=== PATIENT | male | born 1995 | race African-American/Black ===

== ENCOUNTER 2020-05-17 11:52 | Inpatient (IN) | payer OTHER ==
--- NOTE | 2020-05-17 13:00 | BHS.RME ---
Substance Use & Tx History - Substance Use History Alcohol Substance amount: 2 bottles of liqour Frequency of use: Daily Substance route: Oral Date of Last Use: 05/14/20 - Last Treatment Date of last treatment: Never in detox Where was last treatment: ER ([facility]) Physical/Psych/Mental Status - Behavior General Behavior: Decreased activity Eye Contact: Normal Other Behaviors: Mannerisms - Cooperativeness Cooperativeness: Cooperative - Thinking Thought Processes: Logical Thought content: Future oriented - Physical Health Problems Is patient presently having any pain?: Yes (Epigastric area) Does patient presently have any injuries (include location): No Does patient currently have a fever: Yes (low grade 99* F) CIWA Nausea/Vomitin-Mild Nausea/No Vomiting Muscle Tremors: None Anxiety: 0-No Anxiety, at Ease Agitation: 0-Normal Activity Paroxysmal Sweats: No Perspiration Orientation: 0-Oriented Tacttile Disturbances: 0-None Auditory Disturbances: 0-None Visual Disturbances: 0-None Headache: 1-Very Mild CIWA-Ar Total Score: 2 Treatment Recommendation - Level of Care Level of Care: Acute Medical
--- NOTE | 2020-05-17 13:22 | HP ---
CIWA Score Nausea/Vomitin-Mild Nausea/No Vomiting Muscle Tremors: None Anxiety: 1-Mildly Anxious Agitation: 1-Slight > Activity Paroxysmal Sweats: 1-Minimal Palms Moist Orientation: 0-Oriented Tacttile Disturbances: 1-Very Mild Itch/Numbness Auditory Disturbances: 1-Very Mild Visual Disturbances: 1-Very Mild Sensitivity Headache: 2-Mild CIWA-Ar Total Score: 9 - Admission Criteria OASAS Guidelines: Admission for Medically Managed Detox: Requires at least one of the followin. CIWA greater than 12 2. Seizures within the past 24 hours 3. Delirium tremens within the past 24 hours 4. Hallucinations within the past 24 hours 5. Acute intervention needed for co occurring medical disorder 6. Acute intervention needed for co occurring psychiatric disorder 7. Severe withdrawal that cannot be handled at a lower level of care (continued vomiting, continued diarrhea, abnormal vital signs) requiring intravenous medication and/or fluids 8. Patient presents the following: Acute intervention needed for co-occurring med or psych disorder Admission Criteria Met: Admission criteria met Admission ROS S - HPI Chief Complaint: I need detox Allergies/Adverse Reactions: Allergies Allergy/AdvReac Type Severity Reaction Status Date / Time No Known Allergies Allergy Verified 05/17/20 13:27 History of Present Illness: Patient is a 24 year old man who presents for alcohol detox, this is his first attempt at detox. Patient reports he had alcohol on and has not drank since then but he continues to have withdrawal symptoms. He reports being taken to [facility] following 's binge drinking. Upon arrival at [facility], he is noted with elevated blood pressure Exam Limitations: No Limitations - Ebola screening Have you traveled outside of the country in the last 21 days: No Have you had contact with anyone from an Ebola affected area: No Have you been sick,other than usual withdrawal symptoms: No Do you have a fever: No - Review of Systems Constitutional: Chills, Loss of Appetite EENT: reports: No Symptoms Reported Respiratory: reports: No Symptoms reported Cardiac: reports: No Symptoms Reported GI: reports: Nausea, Poor Appetite, Abdominal cramping : reports: No Symptoms Reported Musculoskeletal: reports: Muscle Weakness Integumentary: reports: No Symptoms Reported Neuro: reports: Headache Endocrine: reports: No Symptoms Reported Hematology: reports: No Symptoms Reported Psychiatric: reports: No Sypmtoms Reported Other Systems: Reviewed and Negative Patient History - Patient Medical History Hx Anemia: No Hx Asthma: No Hx Chronic Obstructive Pulmonary Disease (COPD): No Hx Cancer: No Hx Cardiac Disorders: No Hx Congestive Heart Failure: No Hx Hypertension: No Hx Hypercholesterolemia: No Hx Pacemaker: No HX Cerebrovascular Accident: No Hx Seizures: No Hx Dementia: No Hx Diabetes: No Hx Gastrointestinal Disorders: No Hx Liver Disease: No Hx Genitourinary Disorders: No Hx Sexually Transmitted Disorders: No Hx Renal Disease (ESRD): No Hx Thyroid Disease: No Hx Human Immunodeficiency Virus (HIV): No Hx Hepatitis C: No Hx Depression: No Hx Suicide Attempt: No Hx Bipolar Disorder: No Hx Schizophrenia: No - Patient Surgical History Past Surgical History: No - PPD History Previous Implant?: No Documented Results: Negative w/o proof Implanted On Prior R Admission?: No PPD to be Administered?: Yes - Smoking Cessation Smoking history: Never smoked Have you smoked in the past 12 months: No Hx Chewing Tobacco Use: No Initiated information on smoking cessation: No - Substances abused Alcohol Other (specify): Liqour Substance route: Oral Frequency: Daily Amount used: 2 LITERS/DAY Age of first use: 18 Date of last use: 05/14/20 Admission Physical Exam [facility] - Physical General Appearance: Yes: No Apparent Distress HEENTM: Yes: Normocephalic, Normal Voice Respiratory: Yes: Chest Non-Tender, Lungs Clear, Normal Breath Sounds, No Respiratory Distress, No Accessory Muscle Use Neck: Yes: No masses,lesions,Nodules, Supple Breast: Yes: Breast Exam Deferred Cardiology: Yes: Regular Rhythm, Regular Rate, S1, S2 Abdominal: Yes: Increased Bowel Sounds, Other (mild epigastric tenderness) Genitourinary: Yes: Within Normal Limits Back: Yes: Normal Inspection Musculoskeletal: Yes: full range of Motion, Gait Steady, Pelvis Stable Neurological: Yes: Fully Oriented, Normal Mood/Affect, Normal Response Integumentary: Yes: Normal Color Lymphatic: Yes: Within Normal Limits - Diagnostic (1) Alcohol dependence with withdrawal Current Visit: Yes Status: Acute Qualifiers: Complication of substance-induced condition: uncomplicated Qualified Code(s): F10.230 - Alcohol dependence with withdrawal, uncomplicated Cleared for Admission [facility] - Detox or Rehab [facility] Level of Care: Medically Managed Detox Regimen/Protocol: Librium Claeared for Rehab Admission: No Breathalyzer - Breathalyzer Breathalyzer: 0 Urine Drug Screen - Test Device Lot number: [id number] Expiration date: 07/20/21 - Control Is test valid?: Yes - Results Drug screen NEGATIVE: Yes Inpatient Rehab Admission - Rehab Decision to Admit Inpatient rehab admission?: No
[2020-05-17] MEDS ORDERED: METHOCARBAMOL 500 MG TABLET PO PRN (13:28)
[2020-05-17] MEDS ORDERED: IBUPROFEN 400 MG TABLET (FP) PO PRN (13:28)
[2020-05-17] MEDS ORDERED: BISMUTH SUBSALICYLATE 524 MG/30 ML UD PO PRN (13:28)
[2020-05-17] MEDS ORDERED: ONDANSETRON *ODT* 4 MG TABLET SL ONE (13:28)
[2020-05-17] MEDS ORDERED: MAGNESIUM HYDROX 2400MG/30ML ORAL SUSPENSION 30 ML CUP PO PRN (13:28)
[2020-05-17] MEDS ORDERED: MENTHOL/PHENOL 1 EACH UD MM PRN (13:28)
[2020-05-17] MEDS ORDERED: MAGNESIUM CITRATE 300 ML BOTTLE PO PRN (13:28)
[2020-05-17] MEDS ORDERED: ACETAMINOPHEN 325 MG TABLET (FP) PO PRN ×2 (13:28)
[2020-05-17 13:51] VITALS: BMI 22.8
[2020-05-17] MEDS ORDERED: cloNIDine HCL 0.1 MG TABLET PO ONE (13:55)
[2020-05-17] MEDS: hydrOXYzine PAMOATE 25 MG CAPSULE (FP) PO SCH ×3 (14:41→22:14)
[2020-05-17] MEDS: chlordiazePOXIDE HCL 10 MG CAPSULE PO PRN (14:42)
[2020-05-17] MEDS: chlordiazePOXIDE HCL 25 MG CAPSULE PO SCH (22:13)
[2020-05-17] MEDS: MELATONIN 5 MG TABLETS PO SCH (22:14)
[2020-05-17] MEDS: THIAMINE HCL 100 MG TABLET (FP) PO SCH (22:14)
[2020-05-17] MEDS: MAG HYDROX/AL HYDROX/SIMETH 30 ML UNIT-DOSE CUP PO PRN (22:15)
[2020-05-18] MEDS: hydrOXYzine PAMOATE 25 MG CAPSULE (FP) PO SCH (05:30)
[2020-05-18] MEDS: chlordiazePOXIDE HCL 25 MG CAPSULE PO SCH ×3 (05:30→22:22)
[2020-05-18] MEDS ORDERED: hydrOXYzine PAMOATE 25 MG CAPSULE (FP) PO PRN (09:46)
[2020-05-18] MEDS: chlordiazePOXIDE HCL 10 MG CAPSULE PO PRN (10:28)
[2020-05-18] MEDS: PRENATAL VITAMINS W/ FOLIC ACID TABLET (FP) PO SCH (10:28)
[2020-05-18] MEDS: cloNIDine HCL 0.1 MG TABLET PO PRN ×2 (10:28→22:22)
[2020-05-18] MEDS: MAG HYDROX/AL HYDROX/SIMETH 30 ML UNIT-DOSE CUP PO PRN (10:31)
--- NOTE | 2020-05-18 10:43 | PN ---
S CIWA - CIWA Score Nausea/Vomitin-No Nausea/No Vomiting Muscle Tremors: 3 Anxiety: 2 Agitation: 3 Paroxysmal Sweats: 3 Orientation: 0-Oriented Tacttile Disturbances: 0-None Auditory Disturbances: 0-None Visual Disturbances: 0-None Headache: 0-None Present CIWA-Ar Total Score: 11 S Progress Note (SOAP) Subjective: sweats shakes body aches agitation restless Objective: 05/18/20 10:41 Vital Signs Temperature 98.9 F 05/18/20 08:43 Pulse Rate 77 05/18/20 08:43 Respiratory Rate 18 05/18/20 08:43 Blood Pressure 160/90 05/18/20 08:43 O2 Sat by Pulse Oximetry (%) 98 05/18/20 06:12 labs pending aaox3 ambulating no acute distress Assessment: 05/18/20 10:42 withdrawals Plan: continue detox increase fluids monitor BP status pending labs
[2020-05-18 11:32] LABS: HEMATOCRIT 41.2 % (35.4-49); HEMOGLOBIN 13.9 GM/dL (11.7-16.9); MCH 33.6 pg (25.7-33.7); MCHC 33.9 g/dl (32.0-35.9); MEAN CELL VOLUME 99.2 fl (80-96); MEAN PLT VOLUME 10.2 fl (7.5-11.1); PLATELET COUNT 148 K/MM3 (134-434); RBC 4.15 M/mm3 (4.00-5.60); RDW 16.2 % (11.9-15.9)
[2020-05-18 11:45] LABS: ALBUMIN 3.5 g/dl (3.4-5.0); BILIRUBIN,TOTAL 1.1 mg/dL (0.2-1); BLOOD UREA NITROGEN 11.4 mg/dL (7-18); CALCIUM 9.2 mg/dL (8.5-10.1); CREATININE 0.9 mg/dL (0.55-1.3); POTASSIUM 3.7 mmol/L (3.5-5.1); TOT PROT 7.2 g/dl (6.4-8.2)
[2020-05-18] MEDS: MELATONIN 5 MG TABLETS PO SCH (22:23)
[2020-05-18] MEDS: THIAMINE HCL 100 MG TABLET (FP) PO SCH (22:23)
[2020-05-19] MEDS: chlordiazePOXIDE 5 MG CAPSULE PO SCH ×3 (05:22→21:52)
[2020-05-19] MEDS: PRENATAL VITAMINS W/ FOLIC ACID TABLET (FP) PO SCH (10:14)
--- NOTE | 2020-05-19 10:55 | PN ---
S CIWA - CIWA Score Nausea/Vomitin-No Nausea/No Vomiting Muscle Tremors: 2 Anxiety: 1-Mildly Anxious Agitation: 2 Paroxysmal Sweats: 2 Orientation: 0-Oriented Tacttile Disturbances: 0-None Auditory Disturbances: 0-None Visual Disturbances: 0-None Headache: 0-None Present CIWA-Ar Total Score: 7 S Progress Note (SOAP) Subjective: sweats shakes interrupted sleep Objective: 05/19/20 10:54 Vital Signs Temperature 97.5 F L 05/19/20 08:40 Pulse Rate 66 05/19/20 08:40 Respiratory Rate 16 05/19/20 08:40 Blood Pressure 142/89 05/19/20 08:40 O2 Sat by Pulse Oximetry (%) 96 05/19/20 05:49 Laboratory Tests 05/18/20 05/18/20 05/18/20 08:15 08:15 08:15 WBC 4.0 RBC 4.15 Hgb 13.9 Hct 41.2 MCV 99.2 H MCH 33.6 MCHC 33.9 RDW 16.2 H Plt Count 148 MPV 10.2 Sodium 139 Potassium 3.7 Chloride 102 Carbon Dioxide 29 Anion Gap 8 BUN 11.4 Creatinine 0.9 Est GFR (CKD-EPI)AfAm 139.04 Est GFR (CKD-EPI)NonAf 119.96 Random Glucose 123 H Calcium 9.2 Total Bilirubin 1.1 H AST 202 H ALT 71 H Alkaline Phosphatase 70 Total Protein 7.2 Albumin 3.5 Syphilis Serology Non-reactive labs noted elevated ast and alt encourage fluid intake aaox3 ambulating no acute distress Assessment: 05/19/20 10:54 withdrawals Plan: continue detox increase fluids labs repeated
[2020-05-19] MEDS: cloNIDine HCL 0.1 MG TABLET PO PRN ×2 (17:36→21:54)
[2020-05-19] MEDS: MELATONIN 5 MG TABLETS PO SCH (21:53)
[2020-05-19] MEDS: THIAMINE HCL 100 MG TABLET (FP) PO SCH (21:53)
[2020-05-20] MEDS ORDERED: chlordiazePOXIDE HCL 10 MG CAPSULE PO PRN
[2020-05-20] MEDS: chlordiazePOXIDE HCL 10 MG CAPSULE PO SCH ×3 (05:34→22:02)
[2020-05-20] MEDS: PRENATAL VITAMINS W/ FOLIC ACID TABLET (FP) PO SCH (10:05)
--- NOTE | 2020-05-20 10:29 | PN ---
S CIWA - CIWA Score Nausea/Vomitin-No Nausea/No Vomiting Muscle Tremors: 2 Anxiety: 1-Mildly Anxious Agitation: 1-Slight > Activity Paroxysmal Sweats: No Perspiration Orientation: 0-Oriented Tacttile Disturbances: 0-None Auditory Disturbances: 0-None Visual Disturbances: 0-None Headache: 0-None Present CIWA-Ar Total Score: 4 BHS Progress Note (SOAP) Subjective: restless agitation interrupted sleep Objective: 05/20/20 10:28 Vital Signs Temperature 97.5 F L 05/20/20 08:39 Pulse Rate 79 05/20/20 08:39 Respiratory Rate 16 05/20/20 08:39 Blood Pressure 130/76 05/20/20 08:39 O2 Sat by Pulse Oximetry (%) 96 05/20/20 05:53 Laboratory Tests 05/17/20 05/18/20 05/18/20 08:27 08:15 08:15 WBC 4.0 RBC 4.15 Hgb 13.9 Hct 41.2 MCV 99.2 H MCH 33.6 MCHC 33.9 RDW 16.2 H Plt Count 148 MPV 10.2 Absolute Neuts (auto) Neutrophils % Lymphocytes % Monocytes % Eosinophils % Basophils % Nucleated RBC % Sodium Potassium Chloride Carbon Dioxide Anion Gap BUN Creatinine Est GFR (CKD-EPI)AfAm Est GFR (CKD-EPI)NonAf Random Glucose Calcium Total Bilirubin AST ALT Alkaline Phosphatase Total Protein Albumin Syphilis Serology Non-reactive COVID-19 ([facility]) Not detected 05/18/20 05/20/20 05/20/20 08:15 07:50 07:50 WBC 5.1 RBC 4.45 Hgb 14.6 Hct 44.1 MCV 99.2 H MCH 32.9 MCHC 33.1 RDW 16.1 H Plt Count 195 D MPV 10.7 Absolute Neuts (auto) 2.1 Neutrophils % 40.1 L Lymphocytes % 45.0 H Monocytes % 10.4 H Eosinophils % 3.5 Basophils % 1.0 Nucleated RBC % 0 Sodium 139 137 Potassium 3.7 3.9 Chloride 102 101 Carbon Dioxide 29 32 Anion Gap 8 4 L BUN 11.4 6.1 L Creatinine 0.9 0.8 Est GFR (CKD-EPI)AfAm 139.04 145.93 Est GFR (CKD-EPI)NonAf 119.96 125.91 Random Glucose 123 H 73 L Calcium 9.2 9.8 Total Bilirubin 1.1 H 0.6 AST 202 H 169 H ALT 71 H 111 H Alkaline Phosphatase 70 69 Total Protein 7.2 8.2 Albumin 3.5 4.0 Syphilis Serology COVID-19 ([facility]) AST and bilirubin improving. aaox3 ambulating no acute distress Assessment: 05/20/20 10:28 withdrawals Plan: continue detox increase fluids d/c in am
[2020-05-20 10:58] LABS: EOS % 3.5 % (0-4.5); HEMATOCRIT 44.1 % (35.4-49); HEMOGLOBIN 14.6 GM/dL (11.7-16.9); MCH 32.9 pg (25.7-33.7); MCHC 33.1 g/dl (32.0-35.9); MEAN CELL VOLUME 99.2 fl (80-96); MEAN PLT VOLUME 10.7 fl (7.5-11.1); MONO % 10.4 % (3.8-10.2); NEUT % 40.1 % (42.8-82.8); PLATELET COUNT 195 K/MM3 (134-434); RBC 4.45 M/mm3 (4.00-5.60); RDW 16.1 % (11.9-15.9); WHITE BLOOD COUNT 5.1 K/mm3 (4.0-10.0)
[2020-05-20 11:00] LABS: BILIRUBIN,TOTAL 0.6 mg/dL (0.2-1); BLOOD UREA NITROGEN 6.1 mg/dL (7-18); CALCIUM 9.8 mg/dL (8.5-10.1); CREATININE 0.8 mg/dL (0.55-1.3); POTASSIUM 3.9 mmol/L (3.5-5.1); TOT PROT 8.2 g/dl (6.4-8.2)
[2020-05-20] MEDS: MELATONIN 5 MG TABLETS PO SCH (22:02)
[2020-05-20] MEDS: THIAMINE HCL 100 MG TABLET (FP) PO SCH (22:02)
[2020-05-21] MEDS ORDERED: chlordiazePOXIDE HCL 10 MG CAPSULE PO ONE (05:00)
--- NOTE | 2020-05-21 08:49 | DS ---
[facility] Detox Discharge Summary Admission Date: 05/17/20 Discharge Date: 05/21/20 - History Present History: Alcohol Dependence - Physical Exam Results Vital Signs: Vital Signs Temperature 96.9 F L 05/21/20 06:00 Pulse Rate 64 05/21/20 06:00 Respiratory Rate 18 05/21/20 06:00 Blood Pressure 119/75 05/21/20 06:00 O2 Sat by Pulse Oximetry (%) 97 05/21/20 06:00 Pertinent Admission Physical Exam Findings: Vital Signs Temperature 96.9 F L 05/21/20 06:00 Pulse Rate 64 05/21/20 06:00 Respiratory Rate 18 05/21/20 06:00 Blood Pressure 119/75 05/21/20 06:00 O2 Sat by Pulse Oximetry (%) 97 05/21/20 06:00 Laboratory Tests 05/17/20 05/18/20 05/18/20 08:27 08:15 08:15 WBC 4.0 RBC 4.15 Hgb 13.9 Hct 41.2 MCV 99.2 H MCH 33.6 MCHC 33.9 RDW 16.2 H Plt Count 148 MPV 10.2 Absolute Neuts (auto) Neutrophils % Lymphocytes % Monocytes % Eosinophils % Basophils % Nucleated RBC % Sodium Potassium Chloride Carbon Dioxide Anion Gap BUN Creatinine Est GFR (CKD-EPI)AfAm Est GFR (CKD-EPI)NonAf Random Glucose Calcium Total Bilirubin AST ALT Alkaline Phosphatase Total Protein Albumin Syphilis Serology Non-reactive COVID-19 ([facility]) Not detected 05/18/20 05/20/20 05/20/20 08:15 07:50 07:50 WBC 5.1 RBC 4.45 Hgb 14.6 Hct 44.1 MCV 99.2 H MCH 32.9 MCHC 33.1 RDW 16.1 H Plt Count 195 D MPV 10.7 Absolute Neuts (auto) 2.1 Neutrophils % 40.1 L Lymphocytes % 45.0 H Monocytes % 10.4 H Eosinophils % 3.5 Basophils % 1.0 Nucleated RBC % 0 Sodium 139 137 Potassium 3.7 3.9 Chloride 102 101 Carbon Dioxide 29 32 Anion Gap 8 4 L BUN 11.4 6.1 L Creatinine 0.9 0.8 Est GFR (CKD-EPI)AfAm 139.04 145.93 Est GFR (CKD-EPI)NonAf 119.96 125.91 Random Glucose 123 H 73 L Calcium 9.2 9.8 Total Bilirubin 1.1 H 0.6 AST 202 H 169 H ALT 71 H 111 H Alkaline Phosphatase 70 69 Total Protein 7.2 8.2 Albumin 3.5 4.0 Syphilis Serology COVID-19 ([facility]) aaox3 ambulating no acute distress lungs CTA - Treatment Hospital Course: Detox Protocol Followed, Detoxed Safely, Responded well, Discharged Condition Good, Rehab Referral Accepted - Medication Discharge Medications: Ambulatory Orders NK [No Known Home Medication] 05/17/20 - Diagnosis (1) Alcohol dependence with withdrawal Current Visit: Yes Status: Chronic Qualifiers: Complication of substance-induced condition: uncomplicated Qualified Code(s): F10.230 - Alcohol dependence with withdrawal, uncomplicated - AMA Did Patient Leave Against Medical Advice: No
[2020-05-21 09:58] VITALS: BP 140/87; PULSE 102; TEMP 97.8
== END 2020-05-21 09:24 | disposition home or self-care (01) | DRG 775 ==
LOC: YASAS 11:52 → Y6N 13:26
PROVIDERS: ADMIT Allergy & Immunology; ATTEND Allergy & Immunology
PROC: HZ2ZZZZ Detoxification Services for Substance Abuse Treatment (ICD-10-PCS; principal; 2020-05-17)
DX: F10.230 Alcohol dependence with withdrawal, uncomplicated (principal); R03.0 Elevated blood-pressure reading, without diagnosis of hypertension; R74.0 Nonspecific elevation of levels of transaminase and lactic acid dehydrogenase [LDH]
CPT/HCPCS: 36415; 80053; 85025; 85027; 86780; J0735; U0003

== ENCOUNTER 2020-08-10 17:07 | Inpatient (IN) | payer OTHER ==
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
[2020-08-10 17:46] VITALS: BMI 28.3
[2020-08-10 17:57] LABS: BASO % 0.5 % (0-2.0); EOS % 0.1 % (0-4.5); HEMATOCRIT 44.9 % (35.4-49); HEMOGLOBIN 15.6 GM/dL (11.7-16.9); LYMPH % 35.1 % (8-40); MCH 34.6 pg (25.7-33.7); MCHC 34.7 g/dl (32.0-35.9); MEAN CELL VOLUME 99.8 fl (80-96); MEAN PLT VOLUME 8.9 fl (7.5-11.1); MONO % 6.4 % (3.8-10.2); NEUT % 57.9 % (42.8-82.8); PLATELET COUNT 306 K/MM3 (134-434); RDW 13.2 % (11.9-15.9); WHITE BLOOD COUNT 7.4 K/mm3 (4.0-10.0)
[2020-08-10 18:06] LABS: INR 1.03 (0.83-1.09); PROTHROMBIN TIME (PATIENT) 12.2 SEC (9.7-13.0)
[2020-08-10 18:42] LABS: BILIRUBIN,TOTAL 0.5 mg/dL (0.2-1); BLOOD UREA NITROGEN 12.8 mg/dL (7-18); CALCIUM 8.5 mg/dL (8.5-10.1); POTASSIUM 4.3 mmol/L (3.5-5.1); TOT PROT 8.6 g/dl (6.4-8.2)
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
--- NOTE | 2020-08-10 19:24 | PDOC ---
*Physical Exam - Vital Signs Last Vital Signs Temp Pulse Resp BP Pulse Ox 97.0 F L 112 H 18 129/72 100 08/10/20 17:30 08/10/20 17:30 08/10/20 17:30 08/10/20 18:51 08/10/20 17:30 - Physical Exam Patient sleeping in bed, not arrousable. General Appearance: Yes: Other (Patient is obtunded in bed, unable to be woken up.) ED Treatment Course - LABORATORY CBC & Chemistry Diagram: 08/10/20 17:22 08/10/20 17:22 - ADDITIONAL ORDERS Additional order review: Laboratory Results 08/10/20 08/10/20 08/10/20 17:22 17:22 17:22 PT with INR 12.20 INR 1.03 Sodium 142 Potassium 4.3 Chloride 109 H Carbon Dioxide 23 Anion Gap 10 BUN 12.8 Creatinine 1.0 Est GFR (CKD-EPI)AfAm 122.41 Est GFR (CKD-EPI)NonAf 105.62 Random Glucose 130 H Calcium 8.5 Total Bilirubin 0.5 AST 103 H ALT 108 H Alkaline Phosphatase 72 Total Protein 8.6 H Albumin 4.0 Salicylates < 1.7 L Acetaminophen < 2.0 Alcohol, Quantitative 484.6 H 08/10/20 17:22 RBC 4.50 MCV 99.8 H MCHC 34.7 RDW 13.2 D MPV 8.9 D Neutrophils % 57.9 D Lymphocytes % 35.1 D Monocytes % 6.4 Eosinophils % 0.1 D Basophils % 0.5 ED Progress Note - Progress Note Progress Note: Patient signed out to me by day team. Sleeping in bed, obtunded. Medical Decision Making - Medical Decision Making 08/10/20 19:22 24 YOM with alcohol intoxication. Patient signed out to me by day team - Vitals: wnl - exam: patient sleeping in bed reassess: unable to wake patient with voice or sternal rub. Will reassess again. 08/11/20 00:27 Reassess: could wake patient however was in and out of awake state, difficulty answering questions, AandO x2. Patient was able to walk but not without assistance. 08/11/20 07:11 Reassess: Patient expresses desire to return home however appears tremulus, tachy to 120s. will admit for alcohol withdrawal Discharge - Discharge Information Problems reviewed: Yes Clinical Impression/Diagnosis: Alcohol dependence with withdrawal Qualifiers: Complication of substance-induced condition: uncomplicated Qualified Code(s): F10.230 - Alcohol dependence with withdrawal, uncomplicated - Follow up/Referral - Patient Discharge Instructions - Post Discharge Activity
--- OUTSIDE RECORDS SUMMARY | 2020-08-10 20:42 | XMS ---
:1995 Author Organization [facility] Care Team Providers Name Role Phone ED STAFF PHYSICIAN, BRIAN Unavailable Unavailable PALLI VINO Emory Unavailable Unavailable Brian Sorensen Unavailable Unavailable [employer] TOOL SALVAGE WORKER, MOBOLAJI Unavailable [employer] TOOL SALVAGE WORKER, MOBOLAJI Unavailable [employer] TOOL SALVAGE WORKER, MOBOLAJI Unavailable [employer] TOOL SALVAGE WORKER, MOBOLAJI Unavailable ED STAFF PHYSICIAN, STAFF Unavailable Unavailable JULISSA WHYTE Unavailable Unavailable CHRISTOPHER MARTINO MD Unavailable ED STAFF PHYSICIANJESSEE Unavailable Unavailable Other, Doctor Unavailable Unavailable ED STAFF PHYSICIAN Unavailable Unavailable Re-disclosure Warning The records that you are about to access may contain information from federally- assisted alcohol or drug abuse programs. If such information is present, then the following federally mandated warning applies: This information has been disclosed to you from records protected by federal confidentiality rules (42 CFR part 2). The federal rules prohibit you from making any further disclosure of this information unless further disclosure is expressly permitted by the written consent of the person to whom it pertains or as otherwise permitted by 42 CFR part 2. A general authorization for the release of medical or other information is NOT sufficient for this purpose. The Federal rules restrict any use of the information to criminally investigate or prosecute any alcohol or drug abuse patient.The records that you are about to access may contain highly sensitive health information, the redisclosure of which is protected by Article 27-F of the [facility] Public Health law. If you continue you may haveaccess to information: Regarding HIV / AIDS; Provided by facilities licensed or operated by the [facility] Office of Mental Health; or Provided by the [facility] Office for People With Developmental Disabilities. If such information is present, then the following [facility] mandated warning applies: This information has been disclosed to you from confidential records which are protected by state law. State law prohibits you from making any further disclosure of this information without the specific written consent of the person to whom it pertains, or as otherwise permitted by law. Any unauthorized further disclosure in violation of state law may result in a fine or fpc sentence or both. A general authorization for the release of medical or other information is NOT sufficient authorization for further disclosure. Allergies and Adverse Reactions Type Description Substance Reaction Status Data Source(s ) Allergy to No Known Allergies No known GREENW AY ([facility] substance allergies [facility][note 3] ) Allergy to No Known Allergies No known GREENW AY ([facility] substance allergies [facility][note 3] ) Encounters Encounter Providers Location Date Indications Data Source(s ) Emergency Attender: JESSEE ED H 07/28/2020 [facility] STAFF 02:02:00 PM EDT Medical C enter PHYSICIANAttender: - 07/28/2020 STAFF ED STAFF 10:25:00 PM EDT PHYSICIANAdmitter: JESSEE ED STAFF PHYSICIAN Patient discharged. Emergency Attender: STAFF ED STAFF H 07/21/2020 05:44:00 PM [facility] Medical PHYSICIAN EDT - 07/21/2020 10:23:00 Center PM EDT Patient discharged. Emergency Attender: STAFF ED STAFF H 06/11/2020 08:21:00 PM [facility] Medical PHYSICIAN EDT - 06/12/2020 03:18:00 Center AM EDT Patient discharged. Emergency Attender: ED STAFF H 05/14/2020 06:49:00 PM [facility] PHYSICIANAttender: STAFF ED EDT - 05/15/2020 [facility] STAFF PHYSICIANAdmitter: ED 03:08:00 AM EDT STAFF PHYSICIAN Patient discharged. Emergency Attender: SOFIA CHADWICK H-ER 05/11/2020 02:29:00 [facility] Mohan: STAFF ED STAFF PM EDT - 05/11/2020 [facility] PHYSICIANAdmitter: SOFIA CHADWICK 06:14:00 PM EDT K Patient discharged. Emergency Attender: ED STAFF H 05/10/2020 08:53:00 PM [facility] PHYSICIANAttender: STAFF ED EDT - 05/11/2020 [facility] STAFF PHYSICIANAdmitter: ED 01:32:00 AM EDT STAFF PHYSICIAN Patient discharged. Emergency Attender: SOFIA Underwood 05/06/2020 05:20:00 PM [facility] Mohan: STAFF ED STAFF EDT - 05/06/2020 [facility] PHYSICIANAdmitter: SOFIA CHADWICK 10:30:00 PM EDT K Patient discharged. Emergency Attender: Brian [id number]-EMERG 03/08/2020 08:16:00 INTOX S - [facility] RuvoAttender: Doctor AM EDT - 03/08/2020 [facility] Other 02:03:00 PM EDT INTOX Patient discharged. Outpatient<td Attender: Freddy 02/04/2020 [place] ID="encounterTypeDescriptionID0">OFFICE [facility] 12:30:0 0 PM ([place] VISIT</td><td>[facility] EDT - [facility]</td><td>Critical access hospital Center 02/04/2020 [facility] Center</td><td>02/04/2020</td><td></td> 01:22:5 8 PM Center) EDT Emergency Attender: H 10/22/2019 [facility] STAFF ED 03:48:00 PM Medical STAFF EST - Center PHYSICIAN 10/23/2019 01:42:00 AM EST Patient discharged. Inpatient Attender: JULISSA CORONADO H-HAL5 09/24/2019 07:53:00 [facility] MARKOOAttender: STAFF ED STAFF PM EST - 09/27/20 [facility] PHYSICIANAdmitter: JULISSA 09:44:00 AM EST IVONNE ZHUOReferrer: JULISSA COSTA Patient discharged. Emergency Attender: BRIAN ED STAFF H 09/24/2019 09:04:00 AM [facility] PHYSICIANAttender: STAFF ED EST - 09/24/2019 Medical Center STAFF PHYSICIANAdmitter: 08:22:00 PM EST BRIAN ED STAFF PHYSICIAN Patient discharged. Outpatient<td Attender: Freddy 07/09/2019 [place] ID="encounterTypeDescriptionID1">*No [facility] 12:46:00 P M ([place] Show*</td><td>CHRISTOPHER MARTINO MD Health EDT - [facility] MD</td><td>[facility] 07/09/2019 Health Center</td><td>07/09/2019</td><td></td> 11:59:0 0 PM Center) EDT Outpatient<td Attender: Freddy 06/21/2019 A [place] ID="encounterTypeDescriptionID2">OFFICE [facility] 03:00:0 0 PM b ([place] VISIT</td><td>[facility] EDT - d [facility] TOOL SALVAGE WORKER</td><td>[facility] TOOL SALVAGE WORKER Center 06/21/2019 o Health Center</td><td>06/21/2019</td><td><irineo 04:20: 39 PM m Center) nt EDT i ID="encounterDiagnosisID2-0">Lumbago</co n ntent>, <content a ID="encounterDiagnosisID2-1">Overweight< l /content>, <content P ID="encounterDiagnosisID2-2">Abdominal a Pain</content></td> i n O v e r w e i g h t L u m b a g o A b d o m i n a l P a i n O v e r w e i g h t L u m b a g o Abdominal Pain Overweight Lumbago Abdominal Pain Overweight Lumbago Immunizations Vaccine Date Status Description Data Source(s) New in 2011. IIV4 09/25/2019 12:20:[address] [facility] EST Center Medications Medication Brand Start Product Dose Route Administrative Pharmacy St atus Indications Reaction Description Data Name Date Form Instructions Instructions Source(s) Naproxen Naprox 1 complet Naproxen CARISA 250 MG Oral en 2019 ed ([place] Tablet 250MG 12:00: [facility] Naproxen Oral 00 AM [place] 250MG Oral Tablet EDT od Heal th Tablet Center) multivitami 1 complet Thera Mauri t n with ed Jhonatan foLIC Acid Medical (Thera) 400 Center mcg Tablet, Ordered By: Connor Youngblood ns: 1 tablet oral daily Thiamine thiami 1 complet [facility] 100 MG Oral ne ed Jhonatan Tablet mononi Medical thiamine trate Center mononitrate (vit (vit B1) B1) 100 mg 100 mg Tablet, Tablet Ordered By: , lorena Talbot By: Connor Mars ns: 1 r tablet oral Ostine daily , FNPDir ection s: 1 tablet oral daily Insurance Providers Payer name Policy type / Policy ID Covered Covered alliance party's Policy Plan Coverage type alliance party ID relationship to Graff Information graff AFFINITY [id number] SP [id number] ESSENTIAL PLAN 3 4 [facility] [id number] SP [id number] STRGY-AFF AFFINITY O [id number] 01 [id number] HEALTH PLAN AFFINITY O [id number] 01 [id number] HEALTH PLAN AFFINITY O [id number] 01 [id number] ESSENTIALS PLAN 2 [facility] [id number] SP [id number] STRGY-AFF AFFINITY [id number] SP [id number] ESSENTIAL PLAN 1 2 SELF PAY SP INSURANCE Self Pay Self Pay SELF PAY 1 SELF PAY Affinity Individual 0 Self 0 Health Plan Policy AFFINITY O [id number] 01 [id number] ESSENTIALS-CO MMERCIAL AFFINITY O [id number] 01 [id number] ESSENTIALS-CO MMERCIAL Affinity Individual 0 Self 0 Health Plan Policy Problems, Conditions, and Diagnoses Code Display Name Description Problem Type Effective Data Sour ce(s) Dates F10 Alcohol Alcohol 66355-7 03/08/2020 [facility] intoxication intoxication 12:00:00 AM Health Sy stem EDT R41.82 Altered mental Altered mental 94603-1 03/08/2020 [facility] status status 12:00:00 AM Health System EDT 10560474 No Active No Active Problem 06/21/2019 CARISA (Moun t Problems Problems 12:00:00 AM [facility]) 50991805 No Active No Active Problem 06/21/2019 CARISA (Robertun t Problems Problems 12:00:00 AM [facility]) F10.129 Alcohol abuse ALCOHOL ABUSE Diagnosis 07/28/2020 [facility] with WITH 02:02:00 PM Medical Cente r intoxication, INTOXICATION, EDT unspecified UNSPECIFIED F19.10 Other OTHER Diagnosis 07/28/2020 [facility] Jhonatan psychoactive PSYCHOACTIVE 02:02:00 PM Medical C enter substance abuse, SUBSTANCE ABUSE, EDT uncomplicated UNCOMPLICATED Z53.20 Procedure and PROC/TRTMT NOT Diagnosis 06/11/2020 [facility] Betzaida [facility] treatment not CRD OUT BEC PT 08:21:00 PM Medica l Center carried out DECISION FOR UNSP EDT because of REASONS patient's decision for unspecified reasons Z04.89 ENCOUNTER FOR ENCOUNTER FOR Diagnosis 05/11/2020 [facility] EXAMINATION AND EXAMINATION AND 02:29:00 PM [facility] OBSERVATION FOR OBSERVATION FOR EDT OTH REASONS OTH REASONS INTOX INTOX Diagnosis 03/08/2020 [facility] Altered mental Altered mental Diagnosis 03/08/2020 [facility] status, status 08:16:00 AM [facility] unspecified EDT F10.929 Alcohol use, Alcohol Diagnosis 03/08/2020 [facility] [place] unspecified with intoxication 08:16:00 AM [facility] intoxication, EDT unspecified Y90.8 Blood alcohol BLOOD ALCOHOL Diagnosis 09/27/2019 [facility] level of 240 LEVEL OF 240 09:44:00 AM Medical C enter mg/100 ml or more MG/100 ML OR MORE EST R41.82 Altered mental ALTERED MENTAL Diagnosis 09/24/2019 [facility] Jhonatan status, STATUS, 09:04:00 AM Medical Cente r unspecified UNSPECIFIED EST Surgeries/Procedures Procedure Description Date Indications Data Source(s) Computerized axial 03/08/2020 [facility] Health tomography of brain 10:08:00 AM System (procedure) EDT - 03/08/2020 10:08:00 AM EDT No prior serious No prior serious 06/24/2019 BELÉN Y ([place] illness illness 12:00:00 AM [facility]) Bmi is documented BMI > NORMAL 06/21/2019 CARISA Langston above normal DOCUMENTED W F/U 12:00:00 AM [facility] parameters and a PLAN EDT Health Cent er) follow-up plan is documented Results ID Date Data Source [id number] 05/17/2020 08:27:00 AM EDT [facility] Name Value Range Interpretation Description Data Sup porting Code Source(s) Document(s ) SARS [facility] CORONAVIRUS 2 RNA This lab was ordered by [facility] Ac ct Bill Inter and reported by [facility]. ID Date Data Source [id number] 03/08/2020 03:20:05 PM EDT [facility] Name Value Range Interpretation Description Data Sup porting Code Source(s) Document(s ) Acetylsalicylate < 5 Normal (applies Salicylate [facility] [Mass/volume] in to non-numeric Level, Serum Healt h Serum or Plasma results) System ID Date Data Source [id number] 03/08/2020 03:20:05 PM EDT [facility] Name Value Range Interpretation Description Data Sup porting Code Source(s) Document(s ) Acetaminophen 0 ug/ml Below low normal Acetaminophen [place] can [Mass/volume] in Level, Serum Health Serum or Plasma System ID Date Data Source [id number] 03/08/2020 03:20:05 PM EDT [facility] Name Value Range Interpretation Description Data Sup porting Code Source(s) Document(s ) Leukocytes 13.0 Above high WBC Count [facility] [#/volume] in {10^3_uL normal Health Unspecified } System specimen by Automated count Erythrocyte mean 91.5 fl Normal (applies MCV [facility] corpuscular to non-numeric Health volume [Entitic results) System volume] by Automated count Hematocrit 48.5 % Normal (applies Hematocrit [facility] [Volume to non-numeric Health Fraction] of results) System Blood Erythrocytes 5.30 Normal (applies RBC Count [facility] [#/volume] in {10^6_uL to non-numeric Health Blood by } results) System Automated count Hemoglobin 16.8 Normal (applies Hemoglobin [facility] [Mass/volume] in {gm/dL} to non-numeric Health Blood results) System Erythrocyte mean 31.7 pg Normal (applies MCH [facility] corpuscular to non-numeric Health hemoglobin results) System [Entitic mass] by Automated count Platelets 369 Normal (applies Platelet Count [facility] [#/volume] in {10^3_uL to non-numeric Health Plasma by } results) System Automated count Erythrocyte mean 34.6 Normal (applies MCHC [facility] corpuscular {gm/dL} to non-numeric Health hemoglobin results) System concentration [Mass/volume] by Automated count Erythrocyte 13.2 % Normal (applies RDW-CV [facility] distribution to non-numeric Health width [Entitic results) System volume] by Automated count Monocytes 0.6 Normal (applies Monocyte # [facility] [#/volume] in {10^3_uL to non-numeric Health Blood by Manual } results) System count Platelet mean 10.1 fl Normal (applies MPV [facility] volume [Entitic to non-numeric Health volume] in Blood results) System by Automated count Basophils 0.05 Normal (applies Basophil # [facility] [#/volume] in {10^3_uL to non-numeric Health Blood by } results) System Automated count Eosinophils 0.01 Below low normal Eosinophil # [facility] [#/volume] in {10^3_uL Health Blood } System Neutrophils 8.5 Above high Neutrophil # [facility] [#/volume] in {10^3_uL normal Health Body fluid } System Monocytes/100 4.7 % Normal (applies Monocyte % [facility] leukocytes in to non-numeric Health Blood results) System Neutrophils/100 64.9 % Normal (applies Neutrophil % [place] can leukocytes in to non-numeric Health Blood by results) System Automated count Basophils/100 0.4 % Normal (applies Basophil % [facility] leukocytes in to non-numeric Health Unspecified results) System specimen by Manual count Lymphocyte 3.8 Normal (applies Lymphocyte # [facility] percent {10^3_uL to non-numeric Health differential } results) System count (procedure) Eosinophils/100 0.1 % Normal (applies Eosinophil % [place] leukocytes in to non-numeric Health Unspecified results) System specimen Lymphocytes 29.4 % Normal (applies Lymphocyte % [facility] [#/volume] in to non-numeric Health Blood by results) System Automated count ImmatureGranuloc 0.5 % Normal (applies Immature [facility] ytes% to non-numeric Granulocytes % Health results) System Nucleated 0.0 Normal (applies NRBC % [facility] erythrocytes {/100_WB to non-numeric Health [#/volume] in C} results) System Body fluid NRBC# 0.00 Below low normal NRBC # [facility] {10^3_uL Health } System ImmatureGranuloc 0.06 Normal (applies Immature [facility] ytes# {10^3_uL to non-numeric Granulocytes # Health } results) System ID Date Data Source [id number] 03/08/2020 03:20:05 PM EDT [facility] Name Value Range Interpretation Description Data Source(s ) Supporting Code Document(s ) AlcoholE 441.0 Normal (applies to Alcohol Ethyl, [facility] thyl,Blo mg/dl non-numeric Blood Health System od results) None Detected ID Date Data Source [id number] 03/08/2020 03:20:05 PM EDT [facility] Name Value Range Interpretation Description Data Sup porting Code Source(s) Document(s ) Sodium 145 Normal (applies Sodium, Serum [facility] [Moles/volume] in mmol/L to non-numeric Health Serum or Plasma results) System Carbon dioxide, 27.0 Normal (applies CO2, Serum [facility] total mmol/L to non-numeric Health [Moles/volume] in results) System Serum or Plasma Potassium 4.2 Normal (applies Potassium, [facility] [Mass/volume] in mmol/L to non-numeric Serum Health Serum or Plasma results) System Chloride 104 Normal (applies Chloride, [facility] [Moles/volume] in mmol/L to non-numeric Serum Health Serum or Plasma results) System Creatinine 1.00 Normal (applies Creatinine, [facility] [Mass/volume] in mg/dl to non-numeric Serum Health Serum or Plasma results) System TotalProtein 8.3 Above high Total Protein [facility] mg/dl normal Health System Urea nitrogen 13 Normal (applies Blood Urea [facility] [Mass/volume] in mg/dl to non-numeric Nitrogen, Health Serum or Plasma results) Serum System Glucose 87 Normal (applies Glucose, [facility] [Mass/volume] in mg/dL to non-numeric Serum Health Serum or Plasma results) System Aspartate 54 Above high Aspartate [facility] aminotransferase {IU/L} normal Transaminase, Health [Enzymatic Serum System activity/volume] in Serum or Plasma by With P-5'-P DirectBilirubin 0.3 Normal (applies Direct [facility] mg/dl to non-numeric Bilirubin Health results) System Bilirubin.total 0.7 Normal (applies Bilirubin, [facility] [Mass/volume] in mg/dl to non-numeric Serum Total Health Serum or Plasma results) System Alkaline 91 Normal (applies Alkaline [facility] phosphatase {IU/L} to non-numeric Phosphatase, Health isoenzymes results) Serum System [Enzymatic activity/volume] in Serum or Plasma by Heat stability Alanine 29 Normal (applies Alanine [facility] aminotransferase {IU/L} to non-numeric Aminotransfer Heal th [Enzymatic results) ase, Serum System activity/volume] in Serum or Plasma Albumin 4.6 Normal (applies Albumin, [facility] [Mass/volume] in {gm/dl} to non-numeric Serum Health Serum or Plasma results) System Calcium 8.9 Normal (applies Calcium, [facility] [Mass/volume] in mg/dl to non-numeric Total Serum Health Serum or Plasma results) System I.Phosphorus 3.7 Normal (applies I. Phosphorus [facility] mg/dl to non-numeric Health results) System Anion gap in Serum 14.00 Above high Anion Gap [facility] or Plasma mmol/L normal Health System A/GRatio 1.24 Normal (applies A/G Ratio [facility] to non-numeric Health results) System Glomerular > 90 Normal (applies GFR [facility] filtration to non-numeric Health rate/1.73 sq results) System M.predicted [Volume Rate/Area] in Serum or Plasma by Creatinine-based formula (CKD-EPI) eGFR will provide clinicians with a more accurate indicator of renal function then the serum creatinine. The eGFR is automa tically calculated from an empiric formula (endorsed by the National [employer] ion) which incorporates age, sex, and race.Clinicians may notice surprisingly low GFR's with serum creatinine valueswithin normal range- particularly in elderly wo men (with low muscle mass).In the hospital setting, the eGFR should add an element of safety in drug dosing, in assessing the risk of IV contrast administration, and in assessing vascular risk.The NKF staging system is as follows:Normal: eGFR >90 with no kidney markersStage 1: eGFR >90 with kidney markers*Stage 2: eGFR 60- 89Stage 3: eGFR 30-59Stage 4: eGFR 15-29Stage 5: eGFR <15 (usually requir ing dialysis)*Markers include: Proteinuria, Hematuria, abnormal imaging-studies, or other blood or urine test abnormalities Urate [Mass/volume] in 9.2 mg/dl Above high Uric Acid, [facility] Serum or Plasma normal Serum System ID Date Data Source [id number] 03/08/2020 10:08:00 AM EDT [facility] INDICATION: AMS;EXAMINATION: CT BRAIN - CT Head or Brain W/O Contrast InjectionTECHNIQUE:Multiple axial images were obtained of the head withoutintravenous contrast. Aradiation dose optimization t echniquewas used for this scan.IV Contrast dosage and agent:None.COMPARISON: None FINDINGS:Theposterior fossa shows normal cerebellar hemispheres andcerebel lar folia.The supratentorial ventricular systemis normal in size andmidline in po sition.Hypodensity is present in the right frontal lobe,probablyrelated to focal en cephalomalacia.There is no evidence of mass, hemorrhage, or acuteinfarct.There is no evidence of fracture or destruction of the bonycalvarium.The visualized paranasalsi nuses show no significantabnormality.IMPRESSION:Hypode nsity, likely focalencephalomalacia in the anterior rightfrontal lobe.Electronicall y Signed:Aleisha, at 10:40 EDTTel , Service support ,[phone] Name Value Range Interpretation Code Description Data Eunice rce(s) Supporting Document(s ) ID Date Data Source [id number] 02/04/2020 03:12:08 PM EDT BELÉN Landis (Ruddy Puri [id number] [facility]) Name Value Range Interpretation Description Data Source(s ) Supporting Code Document(s ) No Results No Results No Results CARISA ([facility] Recorded For [facility] Specified [facility]) ID Date Data Source Liver 09/27/2019 05:50:00 AM NURIA [facility] Profile.[id number] Name Value Range Interpretation Description Data Sup porting Code Source(s) Document(s ) Aspartate 17-59 Above high <content [facility] aminotransferase normal styleCode="Bold"> Diony hs [Enzymatic Aspartate Medical activity/volume] Aminotransferase Center in Serum or Plasma (AST) </content>68 IU/L H<content styleCode="Italic s"> (17-59 IU/L)</content> Alkaline 38-126 <content [facility] phosphatase styleCode="Bold"> [facility] [Enzymatic Alkaline Medical activity/volume] Phosphatase (ALP) Cente r in Serum or Plasma </content>91 IU/L<content styleCode="Italic s"> (38-126 IU/L)</content> Alanine 7-50 <content [facility] aminotransferase styleCode="Bold"> Diony hs [Enzymatic Alanine Medical activity/volume] Aminotransferase Center in Serum or Plasma (ALT) </content>25 IU/L<content styleCode="Italic s"> (7-50 IU/L)</content> Bilirubin.total 0.2-1.3 <content [facility] [Mass/volume] in styleCode="Bold"> Diony hs Serum or Plasma Bilirubin Total Medical </content>1.0 Center MG/DL<content styleCode="Italic s"> (0.2-1.3 MG/DL)</content> Albumin 3.5-5.0 <content [facility] [Mass/volume] in styleCode="Bold"> Diony hs Serum or Plasma Albumin Medical </content>4.0 Center G/DL<content styleCode="Italic s"> (3.5-5.0 G/DL)</content> ID Date Data Source [id number] 09/27/2019 05:50:00 AM NURIA Ceballos [facility] 0500 Name Value Range Interpretation Description Data Sup porting Code Source(s) Document(s ) Erythrocytes 4.4-5.9 <content [facility] [#/volume] in styleCode="Bold [facility] Blood by ">Red Blood Medical Automated count Cell Count Center </content>4.52 MCUMM<content styleCode="Ital ics"> (4.4-5.9 MCUMM)</content > Leukocytes 4.4-11.0 <content [facility] [#/volume] in styleCode="Bold [facility] Blood by ">White Blood Medical Automated count Cell Count Center </content>6.22 KCUMM<content styleCode="Ital ics"> (4.4-11.0 KCUMM)</content > Hematocrit 41.0-53. <content [facility] [Volume 0 styleCode="Bold [facility] Fraction] of ">Hematocrit Medical Blood by </content>41.5 Center Automated count %<content styleCode="Ital ics"> (41.0-53.0 %)</content> Hemoglobin 13.5-17. <content [facility] [Mass/volume] in 5 styleCode="Bold [facility] Blood ">Hemoglobin Medical </content>15.1 Center G/DL<content styleCode="Ital ics"> (13.5-17.5 G/DL)</content> Erythrocyte mean 26.0-34. <content [facility] corpuscular 0 styleCode="Bold [facility] hemoglobin ">Mean Medical [Entitic mass] Corposcular Center by Automated Hemoglobin count </content>33.4 PG<content styleCode="Ital ics"> (26.0-34.0 PG)</content> Erythrocyte 11.5-14. <content [facility] distribution 5 styleCode="Bold Jhonatan width [Ratio] by ">Red Cell Medical Automated count Distribution Center Width </content>13.2 %<content styleCode="Ital ics"> (11.5-14.5 %)</content> Erythrocyte mean 80.0-100 <content [facility] corpuscular .0 styleCode="Bold Jhonatan volume [Entitic ">Mean Medical volume] by Corpuscular Center Automated count Volume </content>91.8 FL<content styleCode="Ital ics"> (80.0-100.0 FL)</content> Erythrocyte mean 32.0-37. <content [facility] corpuscular 0 styleCode="Bold Jhonatan hemoglobin ">Mean Corpus. Medical concentration Hgb Center [Mass/volume] by Concentration Automated count (MCHC) </content>36.4 G/DL<content styleCode="Ital ics"> (32.0-37.0 G/DL)</content> Platelets 130-400 <content [facility] [#/volume] in styleCode="Bold Jhonatan Blood by ">Platelet Medical Automated count Count Center </content>239 KCUMM<content styleCode="Ital ics"> (130-400 KCUMM)</content > Platelet mean 8.0-11.0 <content [facility] volume [Entitic styleCode="Bold Jhonatan volume] in Blood ">Mean Platelet Medical by Automated Volume Center count </content>10.2 FL<content styleCode="Ital ics"> (8.0-11.0 FL)</content> UNK 0 Above high <content [facility] normal styleCode="Bold Jhonatan ">Nucleated Red Medical Blood Cell Center </content>0.3 /100 H<content styleCode="Ital ics"> (0 /100)</content> UNK 0.0 Above high <content [facility] normal styleCode="Bold Jhonatan ">Nucleated Red Medical Blood Cell Center Count </content>0.02 KCUMM H<content styleCode="Ital ics"> (0.0 KCUMM)</content > ID Date Data Source GFR(Creatinine).[id number] 09/27/2019 05:50:00 AM [facility] 0-0500 Name Value Range Interpretation Code Description Data Eunice rce(s) Supporting Document(s ) UNK > 60 <content [facility] styleCode="Bold"> Medical Cent er EGFR </content>150 GFR<content styleCode="Italic s"> (> 60 GFR)</content> ID Date Data Source CHMROUTINECCDA.[id number] 09/27/2019 05:50:00 AM [facility] -0500 Name Value Range Interpretation Description Data Sup porting Code Source(s) Document(s ) UNK >= 1.0 <content [facility] styleCode="Bold Medical ">AG Ratio Center </content>1.1 <content styleCode="Ital ics"> (>= 1.0 )</content> UNK 2.3-3.5 <content [facility] Jhonatan styleCode="Bold Medical ">Globulin Center </content>3.5 G/DL<content styleCode="Ital ics"> (2.3-3.5 G/DL)</content> Protein 6.3-8.2 <content [facility] Jhonatan [Mass/volum styleCode="Bold Medical e] in Serum ">Total Protein Center or Plasma </content>7.5 G/DL<content styleCode="Ital ics"> (6.3-8.2 G/DL)</content> ID Date Data Source [facility].[id number] 09/27/2019 05:50:00 AM EST [facility] Name Value Range Interpretation Description Data Sup porting Code Source(s) Document(s ) Sodium 137-145 <content Saint [Moles/volume] in styleCode="Bold"> [facility] Serum or Plasma Sodium Medical </content>138 Center MEQ/L<content styleCode="Italic s"> (137-145 MEQ/L)</content> Chloride 98-107 <content [facility] [Moles/volume] in styleCode="Bold"> [facility] Serum or Plasma Chloride Medical </content>101 Center MEQ/L<content styleCode="Italic s"> (98-107 MEQ/L)</content> UNK 9-20 Below low <content [facility] normal styleCode="Bold"> Jhonatan BUN </content>6 Medical MG/DL L<content Center styleCode="Italic s"> (9-20 MG/DL)</content> Carbon dioxide, 22-30 <content [facility] total styleCode="Bold"> Jhonatan [Moles/volume] in Carbon Dioxide Medical Serum or Plasma </content>29 Center MEQ/L<content styleCode="Italic s"> (22-30 MEQ/L)</content> Potassium 3.5-5.3 <content [facility] [Moles/volume] in styleCode="Bold"> [facility] ph[facility] Serum or Plasma Potassium Medical </content>3.6 Center MEQ/L<content styleCode="Italic s"> (3.5-5.3 MEQ/L)</content> Creatinine 0.5-1.3 <content [facility] [Mass/volume] in styleCode="Bold"> Diony hs Serum or Plasma Creatinine Medical </content>0.7 Center MG/DL<content styleCode="Italic s"> (0.5-1.3 MG/DL)</content> UNK > 60 <content Saint styleCode="Bold"> Jhonatan EGFR Medical </content>150 Center GFR<content styleCode="Italic s"> (> 60 GFR)</content> Alanine 7-50 <content [facility] aminotransferase styleCode="Bold"> [facility] hs [Enzymatic Alanine Medical activity/volume] Aminotransferase Center in Serum or Plasma (ALT) </content>25 IU/L<content styleCode="Italic s"> (7-50 IU/L)</content> Aspartate 17-59 Above high <content [facility] aminotransferase normal styleCode="Bold"> Diony hs [Enzymatic Aspartate Medical activity/volume] Aminotransferase Center in Serum or Plasma (AST) </content>68 IU/L H<content styleCode="Italic s"> (17-59 IU/L)</content> Glucose 74-106 <content [facility] [Mass/volume] in styleCode="Bold"> Diony hs Serum or Plasma Glucose Medical </content>94 Center MG/DL<content styleCode="Italic s"> (74-106 MG/DL)</content> Calcium 8.4-10. <content [facility] [Mass/volume] in 2 styleCode="Bold"> Diony hs Serum or Plasma Calcium Medical </content>9.9 Center MG/DL<content styleCode="Italic s"> (8.4-10.2 MG/DL)</content> Alkaline 38-126 <content [facility] phosphatase styleCode="Bold"> Jhonatan [Enzymatic Alkaline Medical activity/volume] Phosphatase (ALP) Cente r in Serum or Plasma </content>91 IU/L<content styleCode="Italic s"> (38-126 IU/L)</content> Albumin 3.5-5.0 <content [facility] [Mass/volume] in styleCode="Bold"> Diony hs Serum or Plasma Albumin Medical </content>4.0 Center G/DL<content styleCode="Italic s"> (3.5-5.0 G/DL)</content> Bilirubin.total 0.2-1.3 <content [facility] [Mass/volume] in styleCode="Bold"> Diony hs Serum or Plasma Bilirubin Total Medical </content>1.0 Center MG/DL<content styleCode="Italic s"> (0.2-1.3 MG/DL)</content> ID Date Data Source Liver 09/26/2019 06:30:00 AM EST [facility] Profile.[id number] Name Value Range Interpretation Description Data Sup porting Code Source(s) Document(s ) Aspartate 17-59 Above high <content [facility] aminotransferase normal styleCode="Bold"> Diony hs [Enzymatic Aspartate Medical activity/volume] Aminotransferase Center in Serum or Plasma (AST) </content>102 IU/L H<content styleCode="Italic s"> (17-59 IU/L)</content> Alanine 7-50 <content [facility] aminotransferase styleCode="Bold"> Diony hs [Enzymatic Alanine Medical activity/volume] Aminotransferase Center in Serum or Plasma (ALT) </content>29 IU/L<content styleCode="Italic s"> (7-50 IU/L)</content> Alkaline 38-126 <content [facility] phosphatase styleCode="Bold"> [facility] [Enzymatic Alkaline Medical activity/volume] Phosphatase (ALP) Cente r in Serum or Plasma </content>97 IU/L<content styleCode="Italic s"> (38-126 IU/L)</content> Bilirubin.total 0.2-1.3 Above high <content [facility] [Mass/volume] in normal styleCode="Bold"> Diony hs Serum or Plasma Bilirubin Total Medical </content>1.7 Center MG/DL H<content styleCode="Italic s"> (0.2-1.3 MG/DL)</content> Albumin 3.5-5.0 <content [facility] [Mass/volume] in styleCode="Bold"> Diony hs Serum or Plasma Albumin Medical </content>3.9 Center G/DL<content styleCode="Italic s"> (3.5-5.0 G/DL)</content> ID Date Data Source HematologyRou.[id number] 09/26/2019 06:30:00 AM NURIA Ceballos [facility] 0500 Name Value Range Interpretation Description Data Sup porting Code Source(s) Document(s ) Erythrocytes 4.4-5.9 <content [facility] [#/volume] in styleCode="Bold Jhonatan Blood by ">Red Blood Medical Automated count Cell Count Center </content>4.61 MCUMM<content styleCode="Ital ics"> (4.4-5.9 MCUMM)</content > Leukocytes 4.4-11.0 <content [facility] [#/volume] in styleCode="Bold Jhonatan Blood by ">White Blood Medical Automated count Cell Count Center </content>7.40 KCUMM<content styleCode="Ital ics"> (4.4-11.0 KCUMM)</content > Hemoglobin 13.5-17. <content [facility] [Mass/volume] in 5 styleCode="Bold Jhonatan Blood ">Hemoglobin Medical </content>15.4 Center G/DL<content styleCode="Ital ics"> (13.5-17.5 G/DL)</content> Erythrocyte mean 26.0-34. <content [facility] corpuscular 0 styleCode="Bold Jhonatan hemoglobin ">Mean Medical [Entitic mass] Corposcular Center by Automated Hemoglobin count </content>33.4 PG<content styleCode="Ital ics"> (26.0-34.0 PG)</content> Erythrocyte mean 80.0-100 <content [facility] corpuscular .0 styleCode="Bold Jhonatan volume [Entitic ">Mean Medical volume] by Corpuscular Center Automated count Volume </content>92.4 FL<content styleCode="Ital ics"> (80.0-100.0 FL)</content> Hematocrit 41.0-53. <content [facility] [Volume 0 styleCode="Bold Jhonatan Fraction] of ">Hematocrit Medical Blood by </content>42.6 Center Automated count %<content styleCode="Ital ics"> (41.0-53.0 %)</content> Erythrocyte 11.5-14. <content [facility] distribution 5 styleCode="Bold Jhonatan width [Ratio] by ">Red Cell Medical Automated count Distribution Center Width </content>13.2 %<content styleCode="Ital ics"> (11.5-14.5 %)</content> UNK 0 <content Saint styleCode="Bold Jhonatan ">Nucleated Red Medical Blood Cell Center </content>0.0 /100<content styleCode="Ital ics"> (0 /100)</content> Erythrocyte mean 32.0-37. <content [facility] corpuscular 0 styleCode="Bold Jhonatan hemoglobin ">Mean Corpus. Medical concentration Hgb Center [Mass/volume] by Concentration Automated count (MCHC) </content>36.2 G/DL<content styleCode="Ital ics"> (32.0-37.0 G/DL)</content> Platelets 130-400 <content Saint [#/volume] in styleCode="Bold Jhonatan Blood by ">Platelet Medical Automated count Count Center </content>268 KCUMM<content styleCode="Ital ics"> (130-400 KCUMM)</content > Platelet mean 8.0-11.0 <content [facility] volume [Entitic styleCode="Bold Jhonatan volume] in Blood ">Mean Platelet Medical by Automated Volume Center count </content>10.7 FL<content styleCode="Ital ics"> (8.0-11.0 FL)</content> UNK 0.0 <content Saint styleCode="Bold Jhonatan ">Nucleated Red Medical Blood Cell Center Count </content>0.00 KCUMM<content styleCode="Ital ics"> (0.0 KCUMM)</content > ID Date Data Source GFR(Creatinine).[id number] 09/26/2019 06:30:00 AM NURIA Ceballos [facility] 0-0500 Name Value Range Interpretation Code Description Data Eunice rce(s) Supporting Document(s ) UNK > 60 <content [facility] styleCode="Bold"> Medical Cent er EGFR </content>128 GFR<content styleCode="Italic s"> (> 60 GFR)</content> ID Date Data Source CHMROUTINECCDA.[id number] 09/26/2019 06:30:00 AM NURIA Ceballos [facility] -0500 Name Value Range Interpretation Description Data Sup porting Code Source(s) Document(s ) UNK >= 1.0 <content [facility] styleCode="Bold Medical ">AG Ratio Center </content>1.1 <content styleCode="Ital ics"> (>= 1.0 )</content> Protein 6.3-8.2 <content [facility] [Mass/volum styleCode="Bold Medical e] in Serum ">Total Protein Center or Plasma </content>7.4 G/DL<content styleCode="Ital ics"> (6.3-8.2 G/DL)</content> UNK 2.3-3.5 <content [facility] styleCode="Bold Medical ">Globulin Center </content>3.5 G/DL<content styleCode="Ital ics"> (2.3-3.5 G/DL)</content> ID Date Data Source [facility].[id number] 09/26/2019 06:30:00 AM EST [facility] Name Value Range Interpretation Description Data Sup porting Code Source(s) Document(s ) Sodium 137-145 Below low <content Saint [Moles/volume] in normal styleCode="Bold"> [facility] Serum or Plasma Sodium Medical </content>135 Center MEQ/L L<content styleCode="Italic s"> (137-145 MEQ/L)</content> Potassium 3.5-5.3 <content [facility] [Moles/volume] in styleCode="Bold"> [facility] Serum or Plasma Potassium Medical </content>3.5 Center MEQ/L<content styleCode="Italic s"> (3.5-5.3 MEQ/L)</content> Chloride 98-107 Below low <content Saint [Moles/volume] in normal styleCode="Bold"> [facility] Serum or Plasma Chloride Medical </content>96 Center MEQ/L L<content styleCode="Italic s"> (98-107 MEQ/L)</content> Carbon dioxide, 22-30 Above high <content [facility] total normal styleCode="Bold"> Jhonatan [Moles/volume] in Carbon Dioxide Medical Serum or Plasma </content>32 Center MEQ/L H<content styleCode="Italic s"> (22-30 MEQ/L)</content> Creatinine 0.5-1.3 <content [facility] [Mass/volume] in styleCode="Bold"> [facility] hs Serum or Plasma Creatinine Medical </content>0.8 Center MG/DL<content styleCode="Italic s"> (0.5-1.3 MG/DL)</content> UNK 9-20 Below low <content [facility] normal styleCode="Bold"> Jhonatan BUN </content>6 Medical MG/DL L<content Center styleCode="Italic s"> (9-20 MG/DL)</content> Glucose 74-106 <content [facility] [Mass/volume] in styleCode="Bold"> [facility] hs Serum or Plasma Glucose Medical </content>90 Center MG/DL<content styleCode="Italic s"> (74-106 MG/DL)</content> Aspartate 17-59 Above high <content [facility] aminotransferase normal styleCode="Bold"> [facility] hs [Enzymatic Aspartate Medical activity/volume] Aminotransferase Center in Serum or Plasma (AST) </content>102 IU/L H<content styleCode="Italic s"> (17-59 IU/L)</content> Calcium 8.4-10. <content [facility] [Mass/volume] in 2 styleCode="Bold"> Diony hs Serum or Plasma Calcium Medical </content>9.8 Center MG/DL<content styleCode="Italic s"> (8.4-10.2 MG/DL)</content> Alkaline 38-126 <content [facility] phosphatase styleCode="Bold"> Jhonatan [Enzymatic Alkaline Medical activity/volume] Phosphatase (ALP) Cente r in Serum or Plasma </content>97 IU/L<content styleCode="Italic s"> (38-126 IU/L)</content> Alanine 7-50 <content [facility] aminotransferase styleCode="Bold"> Diony hs [Enzymatic Alanine Medical activity/volume] Aminotransferase Center in Serum or Plasma (ALT) </content>29 IU/L<content styleCode="Italic s"> (7-50 IU/L)</content> Bilirubin.total 0.2-1.3 Above high <content [facility] [Mass/volume] in normal styleCode="Bold"> Diony hs Serum or Plasma Bilirubin Total Medical </content>1.7 Center MG/DL H<content styleCode="Italic s"> (0.2-1.3 MG/DL)</content> UNK > 60 <content Saint styleCode="Bold"> Jhonatan EGFR Medical </content>128 Center GFR<content styleCode="Italic s"> (> 60 GFR)</content> Albumin 3.5-5.0 <content [facility] [Mass/volume] in styleCode="Bold"> Diony hs Serum or Plasma Albumin Medical </content>3.9 Center G/DL<content styleCode="Italic s"> (3.5-5.0 G/DL)</content> ID Date Data Source Liver 09/25/2019 05:55:00 AM EST [facility] Profile.[id number] Name Value Range Interpretation Description Data Sup porting Code Source(s) Document(s ) Aspartate 17-59 Above high <content [facility] aminotransferase normal styleCode="Bold"> Diony hs [Enzymatic Aspartate Medical activity/volume] Aminotransferase Center in Serum or Plasma (AST) </content>89 IU/L H<content styleCode="Italic s"> (17-59 IU/L)</content> Alanine 7-50 <content [facility] aminotransferase styleCode="Bold"> Diony hs [Enzymatic Alanine Medical activity/volume] Aminotransferase Center in Serum or Plasma (ALT) </content>27 IU/L<content styleCode="Italic s"> (7-50 IU/L)</content> Alkaline 38-126 <content [facility] phosphatase styleCode="Bold"> Jhonatan [Enzymatic Alkaline Medical activity/volume] Phosphatase (ALP) Cente r in Serum or Plasma </content>106 IU/L<content styleCode="Italic s"> (38-126 IU/L)</content> Albumin 3.5-5.0 <content [facility] [Mass/volume] in styleCode="Bold"> Diony hs Serum or Plasma Albumin Medical </content>4.0 Center G/DL<content styleCode="Italic s"> (3.5-5.0 G/DL)</content> Bilirubin.total 0.2-1.3 <content [facility] [Mass/volume] in styleCode="Bold"> Diony hs Serum or Plasma Bilirubin Total Medical </content>1.3 Center MG/DL<content styleCode="Italic s"> (0.2-1.3 MG/DL)</content> ID Date Data Source HematologyRou.[id number] 09/25/2019 05:55:00 AM NURIA Tucker [facility] 0500 Name Value Range Interpretation Description Data Sup porting Code Source(s) Document(s ) Erythrocytes 4.4-5.9 <content Saint [#/volume] in styleCode="Bold [facility] Blood by ">Red Blood Medical Automated count Cell Count Center </content>4.80 MCUMM<content styleCode="Ital ics"> (4.4-5.9 MCUMM)</content > Hematocrit 41.0-53. <content Saint [Volume 0 styleCode="[facility] Fraction] of ">Hematocrit Medical Blood by </content>44.6 Center Automated count %<content styleCode="Ital ics"> (41.0-53.0 %)</content> Hemoglobin 13.5-17. <content [facility] [Mass/volume] in 5 styleCode="Bold Jhonatan Blood ">Hemoglobin Medical </content>15.7 Center G/DL<content styleCode="Ital ics"> (13.5-17.5 G/DL)</content> Leukocytes 4.4-11.0 <content Saint [#/volume] in styleCode="Bold Jhonatan Blood by ">White Blood Medical Automated count Cell Count Center </content>5.69 KCUMM<content styleCode="Ital ics"> (4.4-11.0 KCUMM)</content > Erythrocyte mean 26.0-34. <content [facility] corpuscular 0 styleCode="Bold Jhonatan hemoglobin ">Mean Medical [Entitic mass] Corposcular Center by Automated Hemoglobin count </content>32.7 PG<content styleCode="Ital ics"> (26.0-34.0 PG)</content> Erythrocyte mean 32.0-37. <content [facility] corpuscular 0 styleCode="Bold Jhonatan hemoglobin ">Mean Corpus. Medical concentration Hgb Center [Mass/volume] by Concentration Automated count (MCHC) </content>35.2 G/DL<content styleCode="Ital ics"> (32.0-37.0 G/DL)</content> Erythrocyte mean 80.0-100 <content [facility] corpuscular .0 styleCode="Bold Jhonatan volume [Entitic ">Mean Medical volume] by Corpuscular Center Automated count Volume </content>92.9 FL<content styleCode="Ital ics"> (80.0-100.0 FL)</content> Erythrocyte 11.5-14. <content [facility] distribution 5 styleCode="Bold Jhonatan width [Ratio] by ">Red Cell Medical Automated count Distribution Center Width </content>13.4 %<content styleCode="Ital ics"> (11.5-14.5 %)</content> Platelet mean 8.0-11.0 <content [facility] volume [Entitic styleCode="Bold Jhonatan volume] in Blood ">Mean Platelet Medical by Automated Volume Center count </content>9.6 FL<content styleCode="Ital ics"> (8.0-11.0 FL)</content> UNK 0 <content Saint styleCode="Bold Jhonatan ">Nucleated Red Medical Blood Cell Center </content>0.0 /100<content styleCode="Ital ics"> (0 /100)</content> UNK 0.0 <content Saint styleCode="Bold Jhonatan ">Nucleated Red Medical Blood Cell Center Count </content>0.00 KCUMM<content styleCode="Ital ics"> (0.0 KCUMM)</content > Platelets 130-400 <content Saint [#/volume] in styleCode="Bold Jhonatan Blood by ">Platelet Medical Automated count Count Center </content>336 KCUMM<content styleCode="Ital ics"> (130-400 KCUMM)</content > ID Date Data Source GFR(Creatinine).[id number] 09/25/2019 05:55:00 AM EST [facility] 0-0500 Name Value Range Interpretation Code Description Data Eunice rce(s) Supporting Document(s ) UNK > 60 <content [facility] styleCode="Bold"> Medical Cent er EGFR </content>128 GFR<content styleCode="Italic s"> (> 60 GFR)</content> ID Date Data Source Coagulation 09/25/2019 05:55:00 AM [facility] Rout.[id number] EST Name Value Range Interpretation Description Data Sup porting Code Source(s) Document(s ) aPTT in 25.1-36. <content Saint Platelet poor 5 styleCode="Bold" Jhonatan plasma by >Partial Medical Coagulation Thromboplastin Center assay Time </content>30.9 SEC<content styleCode="Itali cs"> (25.1-36.5 SEC)</content> INR in 0.80-1.2 <content Saint Platelet poor 0 styleCode="Bold" [facility] plasma by >INR Medical Coagulation </content>1.14 Center assay #<content styleCode="Itali cs"> (0.80-1.20 #)</content> UNK 9.0-13.0 <content Saint styleCode="Bold" Jhonatan >Protime Medical </content>12.7 Center SEC<content styleCode="Itali cs"> (9.0-13.0 SEC)</content> ID Date Data Source CHMROUTINECCDA.[id number] 09/25/2019 05:55:00 AM EST [facility] -0500 Name Value Range Interpretation Description Data Sup porting Code Source(s) Document(s ) UNK 2.3-3.5 Above high normal <content Saint styleCode="Rebecca Jhonatan d">Globulin Medical </content>3.6 Center G/DL H<content styleCode="Sanna lics"> (2.3-3.5 G/DL)</content > Magnesium 1.6-2.3 Below low normal <content Saint [Mass/volume] styleCode="Rebecca Matoss in Serum or d">Magnesium Medical Plasma </content>1.5 Center MG/DL L<content styleCode="Sanna lics"> (1.6-2.3 MG/DL)</conten t> UNK >= 1.0 <content Saint styleCode="Rebecca Jhonatan d">AG Ratio Medical </content>1.1 Center <content styleCode="Sanna lics"> (>= 1.0 )</content> Protein 6.3-8.2 <content Saint [Mass/volume] styleCode="Rebecca Matoss in Serum or d">Total Medical Plasma Protein Center </content>7.6 G/DL<content styleCode="Sanna lics"> (6.3-8.2 G/DL)</content > Phosphate 2.5-4.5 Above high normal <content [facility] [Mass/volume] styleCode="Rebecca Jhonatan in Serum or d">Phosphorus Medical Plasma </content>4.7 Center MG/DL H<content styleCode="Sanna lics"> (2.5-4.5 MG/DL)</conten t> ID Date Data Source [facility].[id number] 09/25/2019 05:55:00 AM EST [facility] Name Value Range Interpretation Description Data Sup porting Code Source(s) Document(s ) Chloride 98-107 <content Saint [Moles/volume] in styleCode="Bold"> [facility] Serum or Plasma Chloride Medical </content>102 Center MEQ/L<content styleCode="Italic s"> (98-107 MEQ/L)</content> Potassium 3.5-5.3 <content Saint [Moles/volume] in styleCode="Bold"> [facility] Serum or Plasma Potassium Medical </content>4.2 Center MEQ/L<content styleCode="Italic s"> (3.5-5.3 MEQ/L)</content> Sodium 137-145 <content [facility] [Moles/volume] in styleCode="Bold"> [facility] Serum or Plasma Sodium Medical </content>142 Center MEQ/L<content styleCode="Italic s"> (137-145 MEQ/L)</content> Glucose 74-106 Below low <content Saint [Mass/volume] in normal styleCode="Bold"> Diony hs Serum or Plasma Glucose Medical </content>71 Center MG/DL L<content styleCode="Italic s"> (74-106 MG/DL)</content> Carbon dioxide, 22-30 <content [facility] total styleCode="Bold"> Jhonatan [Moles/volume] in Carbon Dioxide Medical Serum or Plasma </content>29 Center MEQ/L<content styleCode="Italic s"> (22-30 MEQ/L)</content> UNK 9-20 Below low <content [facility] normal styleCode="Bold"> Jhonatan BUN </content>5 Medical MG/DL L<content Center styleCode="Italic s"> (9-20 MG/DL)</content> Creatinine 0.5-1.3 <content [facility] [Mass/volume] in styleCode="Bold"> Diony hs Serum or Plasma Creatinine Medical </content>0.8 Center MG/DL<content styleCode="Italic s"> (0.5-1.3 MG/DL)</content> Calcium 8.4-10. <content [facility] [Mass/volume] in 2 styleCode="Bold"> Diony hs Serum or Plasma Calcium Medical </content>9.2 Center MG/DL<content styleCode="Italic s"> (8.4-10.2 MG/DL)</content> UNK > 60 <content Saint styleCode="Bold"> Jhonatan EGFR Medical </content>128 Center GFR<content styleCode="Italic s"> (> 60 GFR)</content> Aspartate 17-59 Above high <content [facility] aminotransferase normal styleCode="Bold"> Diony hs [Enzymatic Aspartate Medical activity/volume] Aminotransferase Center in Serum or Plasma (AST) </content>89 IU/L H<content styleCode="Italic s"> (17-59 IU/L)</content> Bilirubin.total 0.2-1.3 <content [facility] [Mass/volume] in styleCode="Bold"> Diony hs Serum or Plasma Bilirubin Total Medical </content>1.3 Center MG/DL<content styleCode="Italic s"> (0.2-1.3 MG/DL)</content> Alkaline 38-126 <content Saint phosphatase styleCode="Bold"> [facility] [Enzymatic Alkaline Medical activity/volume] Phosphatase (ALP) Cente r in Serum or Plasma </content>106 IU/L<content styleCode="Italic s"> (38-126 IU/L)</content> Alanine 7-50 <content [facility] aminotransferase styleCode="Bold"> Diony hs [Enzymatic Alanine Medical activity/volume] Aminotransferase Center in Serum or Plasma (ALT) </content>27 IU/L<content styleCode="Italic s"> (7-50 IU/L)</content> Albumin 3.5-5.0 <content [facility] [Mass/volume] in styleCode="Bold"> Diony hs Serum or Plasma Albumin Medical </content>4.0 Center G/DL<content styleCode="Italic s"> (3.5-5.0 G/DL)</content> ID Date Data Source Urinalysis.[id number] 09/24/2019 09:38:00 PM NURIA Ceballos [facility] 0 Name Value Range Interpretation Description Data Sup porting Code Source(s) Document(s ) UNK CLEAR <content Saint styleCode="Rebecca Jhonatan d">Urine Medical Clarity Center </content>LUCI R <content styleCode="Sanna lics"> (CLEAR )</content> Color of Urine YELLOW <content Saint styleCode="Rebecca Jhonatan d">Color, Medical Urine Center </content>YELL OW <content styleCode="Sanna lics"> (YELLOW )</content> UNK NEGATIVE <content Saint styleCode="Rebecca Jhonatan d">Urine Medical Bilirubin Center </content>NEGA TIVE <content styleCode="Sanna lics"> (NEGATIVE )</content> Glucose NEGATIVE <content Saint [Mass/volume] styleCode="Rebecca Israel in Urine by d">Urine Medical Test strip Glucose Center </content>NEGA TIVE MG/DL<content styleCode="Sanna lics"> (NEGATIVE MG/DL)</conten t> Specific 1.015-1.02 Below low normal <content [facility] gravity of 5 styleCode="Rebecca Jhonatan Urine by Test d">Urine Medical strip Specific Center [place] </content><= 1.005 L<content styleCode="Sanna lics"> (1.015-1.025 )</content> Ketones NEGATIVE <content [facility] [Mass/volume] styleCode="Rebecca Jhonatan in Urine by d">Urine Medical Test strip [facility] </content>NEGA TIVE MG/DL<content styleCode="Sanna lics"> (NEGATIVE MG/DL)</conten t> pH of Urine by 4.5-8.0 <content Saint Test strip styleCode="Rebecca Jhonatan d">Urine pH Medical </content>6.5 Center <content styleCode="Sanna lics"> (4.5-8.0 )</content> Hemoglobin NEGATIVE <content Saint [Presence] in styleCode="Rebecca Matoss Urine by Test d">Urine Blood Medical strip </content>TRAC Center E <content styleCode="Sanna lics"> (NEGATIVE )</content> Urobilinogen 0.2-1.0 <content Saint [Units/volume] styleCode="Rebecca Jhonatan in Urine by d">Urine Medical Test strip Urobilinogen Center </content>0.2 MG/DL<content styleCode="Sanna lics"> (0.2-1.0 MG/DL)</conten t> Protein NEGATIVE <content Saint [Mass/volume] styleCode="Rebecca Jhonatan in Urine by d">Urine Medical Test strip Protein Center </content>NEGA TIVE MG/DL<content styleCode="Sanna lics"> (NEGATIVE MG/DL)</conten t> Nitrite NEGATIVE <content Saint [Presence] in styleCode="Rebecca Jhonatan Urine by Test d">Urine Medical strip Nitrite Center </content>NEGA TIVE <content styleCode="Sanna lics"> (NEGATIVE )</content> UNK NONE SEEN <content Saint styleCode="Rebecca Matoss d">Epithelial Medical Cell Center </content>0-2 HPF<content styleCode="Sanna lics"> (NONE SEEN HPF)</content> Leukocyte NEGATIVE <content Saint esterase styleCode="Rebecca Israel [Presence] in d">Urine Medical Urine by Test Leukocyte Center strip </content>NEGA TIVE <content styleCode="Sanna lics"> (NEGATIVE )</content> UNK 0-3 <content Saint styleCode="Rebecca Matoss d">Urine Red Medical Blood Cell Center </content>0-3 HPF<content styleCode="Sanna lics"> (0-3 HPF)</content> ID Date Data Source Liver 09/24/2019 09:38:00 PM EST [facility] Profile.[id number] Name Value Range Interpretation Description Data Sup porting Code Source(s) Document(s ) Aspartate 17-59 Above high <content Saint aminotransferase normal styleCode="Bold"> Diony hs [Enzymatic Aspartate Medical activity/volume] Aminotransferase Center in Serum or Plasma (AST) </content>103 IU/L H<content styleCode="Italic s"> (17-59 IU/L)</content> Bilirubin.total 0.2-1.3 Above high <content Saint [Mass/volume] in normal styleCode="Bold"> Diony hs Serum or Plasma Bilirubin Total Medical </content>1.7 Center MG/DL H<content styleCode="Italic s"> (0.2-1.3 MG/DL)</content> Alkaline 38-126 <content [facility] phosphatase styleCode="Bold"> Jhonatan [Enzymatic Alkaline Medical activity/volume] Phosphatase (ALP) Cente r in Serum or Plasma </content>105 IU/L<content styleCode="Italic s"> (38-126 IU/L)</content> Alanine 7-50 <content [facility] aminotransferase styleCode="Bold"> Diony hs [Enzymatic Alanine Medical activity/volume] Aminotransferase Center in Serum or Plasma (ALT) </content>32 IU/L<content styleCode="Italic s"> (7-50 IU/L)</content> UNK 0.0-0.3 <content Saint styleCode="Bold"> Jhonatan Bilirubin, Direct Medical </content>< 0.2 Center MG/DL<content styleCode="Italic s"> (0.0-0.3 MG/DL)</content> Albumin 3.5-5.0 <content Saint [Mass/volume] in styleCode="Bold"> Diony hs Serum or Plasma Albumin Medical </content>4.8 Center G/DL<content styleCode="Italic s"> (3.5-5.0 G/DL)</content> ID Date Data Source HematologyRou.[id number] 09/24/2019 09:38:00 PM NURIA Ceballos nt [facility] 0500 Name Value Range Interpretation Description Data Sup porting Code Source(s) Document(s ) Leukocytes 4.4-11.0 <content Saint [#/volume] in styleCode="Bold Jhonatan Blood by ">White Blood Medical Automated count Cell Count Center </content>7.65 KCUMM<content styleCode="Ital ics"> (4.4-11.0 KCUMM)</content > Erythrocyte mean 80.0-100 <content Saint corpuscular .0 styleCode="Bold Jhonatan volume [Entitic ">Mean Medical volume] by Corpuscular Center Automated count Volume </content>91.1 FL<content styleCode="Ital ics"> (80.0-100.0 FL)</content> Hematocrit 41.0-53. <content Saint [Volume 0 styleCode="Bold Jhonatan Fraction] of ">Hematocrit Medical Blood by </content>47.1 Center Automated count %<content styleCode="Ital ics"> (41.0-53.0 %)</content> Erythrocyte mean 26.0-34. <content Saint corpuscular 0 styleCode="Bold Jhonatan hemoglobin ">Mean Medical [Entitic mass] Corposcular Center by Automated Hemoglobin count </content>32.3 PG<content styleCode="Ital ics"> (26.0-34.0 PG)</content> Erythrocytes 4.4-5.9 <content Saint [#/volume] in styleCode="Bold Jhonatan Blood by ">Red Blood Medical Automated count Cell Count Center </content>5.17 MCUMM<content styleCode="Ital ics"> (4.4-5.9 MCUMM)</content > Hemoglobin 13.5-17. <content Saint [Mass/volume] in 5 styleCode="Bold Jhonatan Blood ">Hemoglobin Medical </content>16.7 Center G/DL<content styleCode="Ital ics"> (13.5-17.5 G/DL)</content> Erythrocyte mean 32.0-37. <content Saint corpuscular 0 styleCode="Bold Jhonatan hemoglobin ">Mean Corpus. Medical concentration Hgb Center [Mass/volume] by Concentration Automated count (MCHC) </content>35.5 G/DL<content styleCode="Ital ics"> (32.0-37.0 G/DL)</content> Platelets 130-400 <content Saint [#/volume] in styleCode="Bold Jhonatan Blood by ">Platelet Medical Automated count Count Center </content>392 KCUMM<content styleCode="Ital ics"> (130-400 KCUMM)</content > Platelet mean 8.0-11.0 <content Saint volume [Entitic styleCode="Bold Jhonatan volume] in Blood ">Mean Platelet Medical by Automated Volume Center count </content>9.1 FL<content styleCode="Ital ics"> (8.0-11.0 FL)</content> Erythrocyte 11.5-14. <content Saint distribution 5 styleCode="Bold Jhonatan width [Ratio] by ">Red Cell Medical Automated count Distribution Center Width </content>13.6 %<content styleCode="Ital ics"> (11.5-14.5 %)</content> UNK 0.0 <content Saint styleCode="Bold Jhonatan ">Nucleated Red Medical Blood Cell Center Count </content>0.00 KCUMM<content styleCode="Ital ics"> (0.0 KCUMM)</content > UNK 0 <content Saint styleCode="Bold Jhonatan ">Nucleated Red Medical Blood Cell Center </content>0.0 /100<content styleCode="Ital ics"> (0 /100)</content> ID Date Data Source GFR(Creatinine).[id number] 09/24/2019 09:38:00 PM [facility] 0-0500 Name Value Range Interpretation Code Description Data Eunice rce(s) Supporting Document(s ) UNK > 60 <content [facility] styleCode="Bold"> Medical Cent er EGFR </content>112 GFR<content styleCode="Italic s"> (> 60 GFR)</content> ID Date Data Source CHMROUTINECCDA.[id number] 09/24/2019 09:38:00 PM [facility] -0500 Name Value Range Interpretation Description Data Sup porting Code Source(s) Document(s ) Cannabinoids <content Saint [Presence] in styleCode="[facility] Urine by Screen d">Cannabinoid Medical method >50 ng/mL s Center </content>NEGA TIVE NG/ML (Reference Range: not available)<br/ > ID Date Data Source [facility].[id number] 09/24/2019 09:38:00 PM [facility] Name Value Range Interpretation Description Data Sup porting Code Source(s) Document(s ) Sodium 137-145 <content Saint [Moles/volume] in styleCode="Bold"> [facility] Serum or Plasma Sodium Medical </content>144 Center MEQ/L<content styleCode="Italic s"> (137-145 MEQ/L)</content> Chloride 98-107 <content Saint [Moles/volume] in styleCode="Bold"> [facility] Serum or Plasma Chloride Medical </content>101 Center MEQ/L<content styleCode="Italic s"> (98-107 MEQ/L)</content> Potassium <content Saint [Moles/volume] in styleCode="Bold"> [facility] ph[facility] Serum or Plasma Potassium Medical </content>Test Center not performed. MEQ/L (Reference Range: not available)
Glucose 74-106 Below low <content Saint [Mass/volume] in normal styleCode="Bold"> Diony hs Serum or Plasma Glucose Medical </content>69 Center MG/DL L<content styleCode="Italic s"> (74-106 MG/DL)</content> Creatinine 0.5-1.3 <content Saint [Mass/volume] in styleCode="Bold"> Diony hs Serum or Plasma Creatinine Medical </content>0.9 Center MG/DL<content styleCode="Italic s"> (0.5-1.3 MG/DL)</content> UNK 9-20 Below low <content Saint normal styleCode="Bold"> Jhonatan BUN </content>5 Medical MG/DL L<content Center styleCode="Italic s"> (9-20 MG/DL)</content> Calcium 8.4-10. <content Saint [Mass/volume] in 2 styleCode="Bold"> Diony hs Serum or Plasma Calcium Medical </content>9.1 Center MG/DL<content styleCode="Italic s"> (8.4-10.2 MG/DL)</content> Carbon dioxide, 22-30 Above high <content Saint total normal styleCode="Bold"> Jhonatan [Moles/volume] in Carbon Dioxide Medical Serum or Plasma </content>33 Center MEQ/L H<content styleCode="Italic s"> (22-30 MEQ/L)</content> UNK > 60 <content Saint styleCode="Bold"> Jhonatan EGFR Medical </content>112 Center GFR<content styleCode="Italic s"> (> 60 GFR)</content> Alkaline 38-126 <content Saint phosphatase styleCode="Bold"> Jhonatan [Enzymatic Alkaline Medical activity/volume] Phosphatase (ALP) Cente r in Serum or Plasma </content>105 IU/L<content styleCode="Italic s"> (38-126 IU/L)</content> Aspartate 17-59 Above high <content [facility] aminotransferase normal styleCode="Bold"> Diony hs [Enzymatic Aspartate Medical activity/volume] Aminotransferase Center in Serum or Plasma (AST) </content>103 IU/L H<content styleCode="Italic s"> (17-59 IU/L)</content> Alanine 7-50 <content Saint aminotransferase styleCode="Bold"> Diony hs [Enzymatic Alanine Medical activity/volume] Aminotransferase Center in Serum or Plasma (ALT) </content>32 IU/L<content styleCode="Italic s"> (7-50 IU/L)</content> Bilirubin.total 0.2-1.3 Above high <content Saint [Mass/volume] in normal styleCode="Bold"> Diony hs Serum or Plasma Bilirubin Total Medical </content>1.7 Center MG/DL H<content styleCode="Italic s"> (0.2-1.3 MG/DL)</content> Albumin 3.5-5.0 <content Saint [Mass/volume] in styleCode="Bold"> Diony hs Serum or Plasma Albumin Medical </content>4.8 Center G/DL<content styleCode="Italic s"> (3.5-5.0 G/DL)</content> ID Date Data Source Urinalysis.[id number] 09/24/2019 03:05:00 PM NURIA Ceballos [facility] 0 Name Value Range Interpretation Description Data Sup porting Code Source(s) Document(s ) Color of Urine YELLOW <content Saint styleCode="[facility] d">Color, Medical Urine Center </content>YELL OW <content styleCode="Sanna lics"> (YELLOW )</content> Specific 1.015-1.02 Below low normal <content Saint gravity of 5 styleCode="[facility] Urine by Test d">Urine Medical strip Specific Center [place] </content><= 1.005 L<content styleCode="Sanna lics"> (1.015-1.025 )</content> UNK CLEAR <content Saint styleCode="[facility] d">Urine Medical Clarity Center </content>LUCI R <content styleCode="Sanna lics"> (CLEAR )</content> Glucose NEGATIVE <content Saint [Mass/volume] styleCode="[facility] in Urine by d">Urine Medical Test strip Glucose Center </content>NEGA TIVE MG/DL<content styleCode="Sanna lics"> (NEGATIVE MG/DL)</conten t> Ketones NEGATIVE <content Saint [Mass/volume] styleCode="Rebecca Matoss in Urine by d">Urine Medical Test strip [facility] </content>NEGA TIVE MG/DL<content styleCode="Sanna lics"> (NEGATIVE MG/DL)</conten t> UNK NEGATIVE <content Saint styleCode="Rebecca Matoss d">Urine Medical Bilirubin Center </content>NEGA TIVE <content styleCode="Sanna lics"> (NEGATIVE )</content> pH of Urine by 4.5-8.0 <content Saint Test strip styleCode="Rebecca Jhonatan d">Urine pH Medical </content>7.0 Center <content styleCode="Sanna lics"> (4.5-8.0 )</content> Urobilinogen 0.2-1.0 <content Saint [Units/volume] styleCode="Rebecca Matoss in Urine by d">Urine Medical Test strip Urobilinogen Center </content>0.2 MG/DL<content styleCode="Sanna lics"> (0.2-1.0 MG/DL)</conten t> Protein NEGATIVE <content Saint [Mass/volume] styleCode="Rbeecca Israel in Urine by d">Urine Medical Test strip Protein Center </content>NEGA TIVE MG/DL<content styleCode="Sanna lics"> (NEGATIVE MG/DL)</conten t> Hemoglobin NEGATIVE <content Saint [Presence] in styleCode="Rebecca Israel Urine by Test d">Urine Blood Medical strip </content>TRAC Center E <content styleCode="Sanna lics"> (NEGATIVE )</content> UNK 0-3 <content Saint styleCode="Rebecca Jhonatan d">Urine Red Medical Blood Cell Center </content>0-3 HPF<content styleCode="Sanna lics"> (0-3 HPF)</content> Nitrite NEGATIVE <content Saint [Presence] in styleCode="Rebecca Matoss Urine by Test d">Urine Medical strip Nitrite Center </content>NEGA TIVE <content styleCode="Sanna lics"> (NEGATIVE )</content> Leukocyte NEGATIVE <content Saint esterase styleCode="Rebecca Israel [Presence] in d">Urine Medical Urine by Test Leukocyte Center strip </content>NEGA TIVE <content styleCode="Sanna lics"> (NEGATIVE )</content> UNK 0-3 <content Saint styleCode="Rebecca Jhonatan d">Urine White Medical Blood Cell Center </content>0-3 HPF<content styleCode="Sanna lics"> (0-3 HPF)</content> ID Date Data Source JOONMROUTMARGARITADA.[id number] 09/24/2019 03:05:00 PM EST Tucker [facility] -0500 Name Value Range Interpretation Description Data Sup porting Code Source(s) Document(s ) Cannabinoids <content Saint [Presence] in styleCode="Rebecca Israel Urine by Screen d">Cannabinoid Medical method >50 ng/mL s Center </content>NEGA TIVE NG/ML (Reference Range: not available)<br/ > ID Date Data Source Liver 09/24/2019 09:16:00 AM EST [facility] Profile.[id number] Name Value Range Interpretation Description Data Sup porting Code Source(s) Document(s ) Alkaline 38-126 <content Saint phosphatase styleCode="Bold"> Jhonatan [Enzymatic Alkaline Medical activity/volume] Phosphatase (ALP) Cente r in Serum or Plasma </content>116 IU/L<content styleCode="Italic s"> (38-126 IU/L)</content> Aspartate 17-59 Above high <content Saint aminotransferase normal styleCode="Bold"> Diony hs [Enzymatic Aspartate Medical activity/volume] Aminotransferase Center in Serum or Plasma (AST) </content>85 IU/L H<content styleCode="Italic s"> (17-59 IU/L)</content> Alanine 7-50 <content Saint aminotransferase styleCode="Bold"> Diony hs [Enzymatic Alanine Medical activity/volume] Aminotransferase Center in Serum or Plasma (ALT) </content>30 IU/L<content styleCode="Italic s"> (7-50 IU/L)</content> Albumin 3.5-5.0 <content Saint [Mass/volume] in styleCode="Bold"> Diony hs Serum or Plasma Albumin Medical </content>4.6 Center G/DL<content styleCode="Italic s"> (3.5-5.0 G/DL)</content> UNK 0.0-0.3 <content Saint styleCode="Bold"> Jhonatan Bilirubin, Direct Medical </content>< 0.2 Center MG/DL<content styleCode="Italic s"> (0.0-0.3 MG/DL)</content> Bilirubin.total 0.2-1.3 <content Saint [Mass/volume] in styleCode="Bold"> Diony hs Serum or Plasma Bilirubin Total Medical </content>0.8 Center MG/DL<content styleCode="Italic s"> (0.2-1.3 MG/DL)</content> ID Date Data Source HematologyRou.[id number] 09/24/2019 09:16:00 AM NURIA Ceballos [facility] 0500 Name Value Range Interpretation Description Data Sup porting Code Source(s) Document(s ) Leukocytes 4.4-11.0 <content Saint [#/volume] in styleCode="Bold Jhonatan Blood by ">White Blood Medical Automated count Cell Count Center </content>9.65 KCUMM<content styleCode="Ital ics"> (4.4-11.0 KCUMM)</content > Hematocrit 41.0-53. <content Saint [Volume 0 styleCode="Bold Jhonatan Fraction] of ">Hematocrit Medical Blood by </content>45.4 Center Automated count %<content styleCode="Ital ics"> (41.0-53.0 %)</content> Erythrocyte mean 80.0-100 <content Saint corpuscular .0 styleCode="Bold Jhonatan volume [Entitic ">Mean Medical volume] by Corpuscular Center Automated count Volume </content>91.2 FL<content styleCode="Ital ics"> (80.0-100.0 FL)</content> Erythrocytes 4.4-5.9 <content Saint [#/volume] in styleCode="Bold Jhonatan Blood by ">Red Blood Medical Automated count Cell Count Center </content>4.98 MCUMM<content styleCode="Ital ics"> (4.4-5.9 MCUMM)</content > Erythrocyte mean 26.0-34. <content Saint corpuscular 0 styleCode="Bold Jhonatan hemoglobin ">Mean Medical [Entitic mass] Corposcular Center by Automated Hemoglobin count </content>32.9 PG<content styleCode="Ital ics"> (26.0-34.0 PG)</content> Hemoglobin 13.5-17. <content Saint [Mass/volume] in 5 styleCode="Bold Jhonatan Blood ">Hemoglobin Medical </content>16.4 Center G/DL<content styleCode="Ital ics"> (13.5-17.5 G/DL)</content> Erythrocyte 11.5-14. <content Saint distribution 5 styleCode="Bold Jhonatan width [Ratio] by ">Red Cell Medical Automated count Distribution Center Width </content>13.8 %<content styleCode="Ital ics"> (11.5-14.5 %)</content> UNK 0 <content Saint styleCode="Bold Jhonatan ">Nucleated Red Medical Blood Cell Center </content>0.0 /100<content styleCode="Ital ics"> (0 /100)</content> Platelet mean 8.0-11.0 <content Saint volume [Entitic styleCode="Bold Jhonatan volume] in Blood ">Mean Platelet Medical by Automated Volume Center count </content>9.2 FL<content styleCode="Ital ics"> (8.0-11.0 FL)</content> Platelets 130-400 <content Saint [#/volume] in styleCode="Bold Jhonatan Blood by ">Platelet Medical Automated count Count Center </content>397 KCUMM<content styleCode="Ital ics"> (130-400 KCUMM)</content > Erythrocyte mean 32.0-37. <content Saint corpuscular 0 styleCode="Bold Jhonatan hemoglobin ">Mean Corpus. Medical concentration Hgb Center [Mass/volume] by Concentration Automated count (MCHC) </content>36.1 G/DL<content styleCode="Ital ics"> (32.0-37.0 G/DL)</content> UNK 0.0 <content Saint styleCode="Bold Jhonatan ">Nucleated Red Medical Blood Cell Center Count </content>0.00 KCUMM<content styleCode="Ital ics"> (0.0 KCUMM)</content > ID Date Data Source GFR(Creatinine).[id number] 09/24/2019 09:16:00 AM NURIA koroma [facility] 0-0500 Name Value Range Interpretation Code Description Data Eunice rce(s) Supporting Document(s ) UNK > 60 <content [facility] styleCode="Bold"> Medical Cent er EGFR </content>128 GFR<content styleCode="Italic s"> (> 60 GFR)</content> ID Date Data Source BMP.[id number] 09/24/2019 09:16:00 AM EST [facility] Name Value Range Interpretation Description Data Sup porting Code Source(s) Document(s ) Chloride 98-107 <content Saint [Moles/volume] in styleCode="Bold"> [facility] Serum or Plasma Chloride Medical </content>102 Center MEQ/L<content styleCode="Italic s"> (98-107 MEQ/L)</content> Carbon dioxide, 22-30 <content Saint total styleCode="Bold"> Jhonatan [Moles/volume] in Carbon Dioxide Medical Serum or Plasma </content>27 Center MEQ/L<content styleCode="Italic s"> (22-30 MEQ/L)</content> Potassium 3.5-5.3 <content Saint [Moles/volume] in styleCode="Bold"> [facility] [facility] Serum or Plasma Potassium Medical </content>4.0 Center MEQ/L<content styleCode="Italic s"> (3.5-5.3 MEQ/L)</content> Sodium 137-145 <content Saint [Moles/volume] in styleCode="Bold"> [facility] [facility] Serum or Plasma Sodium Medical </content>144 Center MEQ/L<content styleCode="Italic s"> (137-145 MEQ/L)</content> UNK 9-20 Below low <content Saint normal styleCode="Bold"> Jhonatan BUN </content>8 Medical MG/DL L<content Center styleCode="Italic s"> (9-20 MG/DL)</content> UNK > 60 <content Saint styleCode="Bold"> Jhonatan EGFR Medical </content>128 Center GFR<content styleCode="Italic s"> (> 60 GFR)</content> Aspartate 17-59 Above high <content Saint aminotransferase normal styleCode="Bold"> Diony hs [Enzymatic Aspartate Medical activity/volume] Aminotransferase Center in Serum or Plasma (AST) </content>85 IU/L H<content styleCode="Italic s"> (17-59 IU/L)</content> Glucose 74-106 <content Saint [Mass/volume] in styleCode="Bold"> Diony hs Serum or Plasma Glucose Medical </content>85 Center MG/DL<content styleCode="Italic s"> (74-106 MG/DL)</content> Calcium 8.4-10. <content Saint [Mass/volume] in 2 styleCode="Bold"> Diony hs Serum or Plasma Calcium Medical </content>9.3 Center MG/DL<content styleCode="Italic s"> (8.4-10.2 MG/DL)</content> Creatinine 0.5-1.3 <content Saint [Mass/volume] in styleCode="Bold"> Diony hs Serum or Plasma Creatinine Medical </content>0.8 Center MG/DL<content styleCode="Italic s"> (0.5-1.3 MG/DL)</content> Alkaline 38-126 <content Saint phosphatase styleCode="Bold"> Jhonatan [Enzymatic Alkaline Medical activity/volume] Phosphatase (ALP) Cente r in Serum or Plasma </content>116 IU/L<content styleCode="Italic s"> (38-126 IU/L)</content> Alanine 7-50 <content Saint aminotransferase styleCode="Bold"> Diony hs [Enzymatic Alanine Medical activity/volume] Aminotransferase Center in Serum or Plasma (ALT) </content>30 IU/L<content styleCode="Italic s"> (7-50 IU/L)</content> Albumin 3.5-5.0 <content Saint [Mass/volume] in styleCode="Bold"> Diony hs Serum or Plasma Albumin Medical </content>4.6 Center G/DL<content styleCode="Italic s"> (3.5-5.0 G/DL)</content> Bilirubin.total 0.2-1.3 <content Saint [Mass/volume] in styleCode="Bold"> Diony hs Serum or Plasma Bilirubin Total Medical </content>0.8 Center MG/DL<content styleCode="Italic s"> (0.2-1.3 MG/DL)</content> ID Date Data Source [id number] 06/24/2019 04:56:43 PM EDT BELÉN Landis ([place] [id number] [facility]) Name Value Range Interpretation Description Data Source(s ) Supporting Code Document(s ) No Results No Results No Results CARISA ([facility] Recorded For Jaxson Specified [facility]) Procedure Social History Code Duration Value Status Description Data Source(s ) Smoking 07/28/2020 Denies Ever completed Denies Ever Rodney s 08:01:00 PM EDT Smoked Smoked Medical C enter Smoking 07/28/2020 Denies Ever completed Denies Ever Rodney s 02:16:00 PM EDT Smoked Smoked Medical C enter Smoking 07/28/2020 Denies Ever completed Denies Ever Rodney s 02:10:00 PM EDT Smoked Smoked Medical C enter Smoking 07/28/2020 Denies Ever completed Denies Ever Rodney s 02:08:00 PM EDT Smoked Smoked Medical C enter Smoking 07/21/2020 Denies Ever completed Denies Ever Rodney s 06:10:00 PM EDT Smoked Smoked Medical C enter Smoking 07/21/2020 Denies Ever completed Denies Ever Rodney s 06:09:00 PM EDT Smoked Smoked Medical C enter Smoking 06/11/2020 Denies Ever completed Denies Ever Rodney s 08:47:00 PM EDT Smoked Smoked Medical C enter Smoking 06/11/2020 Denies Ever completed Denies Ever Rodney s 08:35:00 PM EDT Smoked Smoked Medical C enter Smoking 06/11/2020 Denies Ever completed Denies Ever Rodney s 08:25:00 PM EDT Smoked Smoked Medical C enter Smoking 05/14/2020 Denies Ever completed Denies Ever [facility] Matos s 09:43:00 PM EDT Smoked Smoked Medical C enter Smoking 05/14/2020 Denies Ever completed Denies Ever [facility] Matos s 08:10:00 PM EDT Smoked Smoked Medical C enter Smoking 05/14/2020 Denies Ever completed Denies Ever [facility] Carlo white 07:29:00 PM EDT Smoked Smoked Medical C enter Smoking 05/11/2020 Denies Ever completed Denies Ever [facility] Matos s 02:59:00 PM EDT Smoked Smoked Medical C enter Smoking 05/11/2020 Denies Ever completed Denies Ever [facility] Carlo white 02:35:00 PM EDT Smoked Smoked Medical C enter Smoking 05/10/2020 Denies Ever completed Denies Ever [facility] Matos s 09:40:00 PM EDT Smoked Smoked Medical C enter Smoking 05/10/2020 Denies Ever completed Denies Ever [facility] 09:06:00 PM EDT Smoked Smoked Medical C enter Smoking 05/10/2020 Denies Ever completed Denies Ever [facility] 09:06:00 PM EDT Smoked Smoked Medical C enter Smoking 05/06/2020 Denies Ever completed Denies Ever [facility] 09:19:00 PM EDT Smoked Smoked Medical C enter Smoking 05/06/2020 Denies Ever completed Denies Ever [facility] 09:13:00 PM EDT Smoked Smoked Medical C enter Smoking 05/06/2020 Denies Ever completed Denies Ever [facility] 06:01:00 PM EDT Smoked Smoked Medical C enter Smoking 05/06/2020 Denies Ever completed Denies Ever [facility] 05:22:00 PM EDT Smoked Smoked Medical C enter Smoking 10/22/2019 Denies Ever completed Denies Ever [facility] 10:00:00 PM EST Smoked Smoked Medical C enter Smoking 10/22/2019 Denies Ever completed Denies Ever [facility] 04:34:00 PM EST Smoked Smoked Medical C enter Smoking 10/22/2019 Denies Ever completed Denies Ever [facility] 04:17:00 PM EST Smoked Smoked Medical C enter Smoking 09/24/2019 Denies Ever completed Denies Ever [facility] 11:05:00 PM EST Smoked Smoked Medical C enter Smoking 09/24/2019 Denies Ever completed Denies Ever [facility] 10:06:00 PM EST Smoked Smoked Medical C enter Smoking 09/24/2019 Denies Ever completed Denies Ever [facility] 09:14:00 PM EST Smoked Smoked Medical C enter Smoking 09/24/2019 Denies Ever completed Denies Ever [facility] 08:00:00 PM EST Smoked Smoked Medical C enter Smoking 09/24/2019 Denies Ever completed Denies Ever [facility] 07:55:00 PM EST Smoked Smoked Medical C enter Smoking 09/24/2019 Denies Ever completed Denies Ever [facility] 10:01:00 AM EST Smoked Smoked Medical C enter Smoking 09/24/2019 Denies Ever completed Denies Ever [facility] 09:07:00 AM EST Smoked Smoked Medical C enter Smoking 06/24/2019 Never smoked completed Never smoked CARISA ( [facility] 04:56:41 PM EDT tobacco tobacco (finding) Ve rnon (finding) [facility]) Assertion social history completed [place] ( [facility]) Assertion sexual history completed [place] ( [facility]) Assertion Finding completed Finding relating CARISA ([facility] relating to to drug misuse [place] drug misuse behavior [facility] behavior (finding) [facility]) (finding) Assertion Current drinker completed Current drinker ÁNGELE DENISE ([facility] of alcohol of alcohol [place] (finding) (finding) [facility]) Assertion Finding of completed Finding of CARISA (Moun t activity of activity of daily [place] daily living living (finding) [facility] [place]) [facility]) Assertion Physical completed Physical handicap [facility] ([facility] handicap (finding) [place] (finding) [facility]) Assertion Caffeine user completed Caffeine user [place] ([facility] (finding) (finding) [facility]) Assertion Exercise completed Exercise history [place] ([facility] history finding finding (finding) Ve rnon (finding) [facility]) Vital Signs ID Date Data Source UNK Name Value Range Interpretation Code Description Data Source(s) Body temperature 36.528502 36.039558 [place] [facility] Respiratory rate 15 /min 15 /min [facility] Oxygen 97 % 97 % [facility] saturation in Medical [facility] Arterial blood by Pulse oximetry Heart rate 89 /min 89 /min [facility] Diastolic blood 66 mm[Hg] 66 mm[Hg] [facility] pressure [facility] Systolic blood 134 mm[Hg] 134 mm[Hg] [facility] Body temperature 36.131729 36.818666 [place] [facility] Respiratory rate 19 /min 19 /min [facility] Oxygen 98 % 98 % [facility] saturation in [facility] Arterial blood by Pulse oximetry Heart rate 94 /min 94 /min [facility] Diastolic blood 67 mm[Hg] 67 mm[Hg] [facility] pressure [facility] Systolic blood 115 mm[Hg] 115 mm[Hg] [facility] [place] Body temperature 36.114053 36.299051 [facility] Respiratory rate 18 /min 18 /min [facility] Oxygen 97 % 97 % [facility] saturation in Medical [facility] Arterial blood by Pulse oximetry Heart rate 109 /min 109 /min [facility] Diastolic blood 59 mm[Hg] 59 mm[Hg] [facility] Systolic blood 110 mm[Hg] 110 mm[Hg] [facility] [place] Body weight 75.118913 75.565783 kg [facility] Measured kg Medical Center Body temperature 36.857453 36.241278 [facility] Respiratory rate 18 /min 18 /min [facility] Oxygen 98 % 98 % [facility] saturation in [facility] Arterial blood by Pulse oximetry Heart rate 98 /min 98 /min [facility] Body height 167.229404 167.568309 cm [facility] Diastolic blood 78 mm[Hg] 78 mm[Hg] [facility] Center Systolic blood 138 mm[Hg] 138 mm[Hg] [facility] [place] Body mass index 26.6 kg/m2 26.6 kg/m2 [facility] (BMI) [Ratio] [facility] Body temperature 36.295359 36.295317 [place] [facility] Respiratory rate 18 /min 18 /min [facility] Oxygen 96 % 96 % [facility] saturation in [facility] Arterial blood by Pulse oximetry Heart rate 97 /min 97 /min [facility] Diastolic blood 65 mm[Hg] 65 mm[Hg] [facility] pressure [facility] Systolic blood 142 mm[Hg] 142 mm[Hg] [facility] [place] Body temperature 36.069475 36.376163 [place] [facility] Respiratory rate 17 /min 17 /min [facility] Oxygen 96 % 96 % [facility] saturation in Medical [facility] Arterial blood by Pulse oximetry Heart rate 99 /min 99 /min [facility] Diastolic blood 67 mm[Hg] 67 mm[Hg] [facility] Systolic blood 131 mm[Hg] 131 mm[Hg] [facility] [place] Body temperature 36.465810 36.778896 [facility] Respiratory rate 17 /min 17 /min [facility] Oxygen 95 % 95 % [facility] saturation in Medical [facility] Arterial blood by Pulse oximetry Heart rate 89 /min 89 /min [facility] Diastolic blood 74 mm[Hg] 74 mm[Hg] [facility] Systolic blood 142 mm[Hg] 142 mm[Hg] [facility] [place] Body temperature 36.185811 36.519718 [facility] Respiratory rate 15 /min 15 /min [facility] Oxygen 100 % 100 % [facility] saturation in [facility] Arterial blood by Pulse oximetry Heart rate 109 /min 109 /min [facility] Diastolic blood 91 mm[Hg] 91 mm[Hg] [facility] Systolic blood 147 mm[Hg] 147 mm[Hg] [facility] [place] Body temperature 36.042745 36.519189 [facility] Respiratory rate 16 /min 16 /min [facility] Oxygen 98 % 98 % [facility] saturation in Medical [facility] Arterial blood by Pulse oximetry Heart rate 78 /min 78 /min [facility] Diastolic blood 81 mm[Hg] 81 mm[Hg] [facility] Systolic blood 136 mm[Hg] 136 mm[Hg] [facility] [place] Body temperature 36.658787 36.484180 [facility] Respiratory rate 16 /min 16 /min [facility] Oxygen 98 % 98 % [facility] saturation in [facility] Arterial blood by Pulse oximetry Heart rate 97 /min 97 /min [facility] Diastolic blood 75 mm[Hg] 75 mm[Hg] [facility] Systolic blood 134 mm[Hg] 134 mm[Hg] [facility] [place] Body temperature 36.012859 36.574817 [facility] Respiratory rate 17 /min 17 /min [facility] Oxygen 95 % 95 % [facility] saturation in Medical [facility] Arterial blood by Pulse oximetry Heart rate 113 /min 113 /min [facility] Diastolic blood 92 mm[Hg] 92 mm[Hg] [facility] pressure [facility] Systolic blood 140 mm[Hg] 140 mm[Hg] [facility] [place] Body weight 72.927468 72.225737 kg [facility] Measured kg [facility] Center Body temperature 37.261256 37.971445 [place] [facility] Respiratory rate 14 /min 14 /min [facility] Oxygen 95 % 95 % [facility] saturation in Medical [address] Arterial blood by Pulse oximetry Heart rate 92 /min 92 /min [facility] Body height 162.897999 162.782049 cm [facility] Diastolic blood 93 mm[Hg] 93 mm[Hg] [facility] pressure [facility] Center Systolic blood 142 mm[Hg] 142 mm[Hg] [facility] [place] Body mass index 27.4 kg/m2 27.4 kg/m2 [facility] (BMI) [Ratio] [facility] Body temperature 36.945161 36.136250 [facility] Respiratory rate 18 /min 18 /min [facility] Oxygen 98 % 98 % [facility] saturation in Medical [facility] Arterial blood by Pulse oximetry Heart rate 84 /min 84 /min [facility] Diastolic blood 77 mm[Hg] 77 mm[Hg] [facility] pressure [facility] Systolic blood 142 mm[Hg] 142 mm[Hg] [facility] [place] Body temperature 36.108642 36.072528 [facility] Respiratory rate 17 /min 17 /min [facility] Oxygen 99 % 99 % [facility] saturation in Medical [facility] Arterial blood by Pulse oximetry Heart rate 78 /min 78 /min [facility] Diastolic blood 80 mm[Hg] 80 mm[Hg] [facility] Systolic blood 132 mm[Hg] 132 mm[Hg] [facility] [place] Body weight 75.127825 75.931057 kg [facility] Measured kg [facility] Body temperature 36.106391 36.293087 [place] [facility] Respiratory rate 18 /min 18 /min [facility] Oxygen 97 % 97 % [facility] saturation in Medical [facility] Arterial blood by Pulse oximetry Heart rate 105 /min 105 /min [facility] Body height 165.123441 165.346872 cm [facility] Diastolic blood 93 mm[Hg] 93 mm[Hg] [facility] pressure [facility] Systolic blood 147 mm[Hg] 147 mm[Hg] [facility] [place] Body mass index 27.5 kg/m2 27.5 kg/m2 [facility] (BMI) [Ratio] [facility] Body temperature 36.812722 36.552812 [facility] Respiratory rate 18 /min 18 /min [facility] Oxygen 98 % 98 % [facility] saturation in Medical [facility] ter Arterial blood by Pulse oximetry Heart rate 100 /min 100 /min [facility] Diastolic blood 80 mm[Hg] 80 mm[Hg] [facility] pressure [facility] Systolic blood 146 mm[Hg] 146 mm[Hg] [facility] [place] Body weight 68.209989 68.719004 kg [facility] hs Measured kg [facility] Body temperature 36.556944 36.614474 [facility] Body temperature 37.229183 37.450693 [facility] Respiratory rate 18 /min 18 /min [facility] Respiratory rate 18 /min 18 /min [facility] Oxygen 95 % 95 % [facility] saturation in Medical [facility] ter Arterial blood by Pulse oximetry Oxygen 96 % 96 % [facility] saturation in Medical [facility] Arterial blood by Pulse oximetry Heart rate 105 /min 105 /min [facility] Heart rate 101 /min 101 /min [facility] Body height 167.743551 167.106195 cm [facility] Diastolic blood 81 mm[Hg] 81 mm[Hg] [facility] pressure [facility] Center Systolic blood 149 mm[Hg] 149 mm[Hg] [facility] [place] Diastolic blood 78 mm[Hg] 78 mm[Hg] [facility] Systolic blood 140 mm[Hg] 140 mm[Hg] [facility] [place] Body mass index 24.0 kg/m2 24.0 kg/m2 [facility] (BMI) [Ratio] [facility] Body temperature 36.072858 36.399978 [facility] Respiratory rate 17 /min 17 /min [facility] Oxygen 98 % 98 % [facility] saturation in Medical [facility] Arterial blood by Pulse oximetry Heart rate 87 /min 87 /min [facility] Diastolic blood 68 mm[Hg] 68 mm[Hg] [facility] pressure [facility] Systolic blood 127 mm[Hg] 127 mm[Hg] [facility] [place] Body temperature 36.590474 36.667556 [facility] Respiratory rate 18 /min 18 /min [facility] Oxygen 100 % 100 % [facility] saturation in Medical [facility] Arterial blood by Pulse oximetry Heart rate 98 /min 98 /min [facility] Diastolic blood 73 mm[Hg] 73 mm[Hg] [facility] Systolic blood 120 mm[Hg] 120 mm[Hg] [facility] [place] Body temperature 36.061626 36.041469 [facility] Respiratory rate 19 /min 19 /min [facility] Oxygen 97 % 97 % [facility] saturation in Medical [facility] ter Arterial blood by Pulse oximetry Heart rate 72 /min 72 /min [facility] Diastolic blood 78 mm[Hg] 78 mm[Hg] [facility] Systolic blood 128 mm[Hg] 128 mm[Hg] [facility] [place] Body temperature 36.538508 36.492695 [facility] Respiratory rate 18 /min 18 /min [facility] Oxygen 100 % 100 % [facility] saturation in Medical [facility] ter Arterial blood by Pulse oximetry Heart rate 98 /min 98 /min [facility] Diastolic blood 73 mm[Hg] 73 mm[Hg] [facility] Systolic blood 120 mm[Hg] 120 mm[Hg] [facility] [place] Diastolic blood 69 mm[Hg] 0 - 999 Normal (applies to 69 mm[Hg] [facility] non-numeric System results) Systolic blood 127 mm[Hg] 0 - 999 Normal (applies to 127 mm[Hg] [facility] pressure non-numeric System results) Oxygen 100 % 0 - 999 Normal (applies to 100 % [facility] saturation in non-numeric System Arterial blood results) by Pulse oximetry Respiratory rate 18 0 - 999 Above high normal 18 M [facility] System Heart rate 106 0 - 999 Above high normal 106 [facility] Body temperature 36.6 [place] 0 - 99.9 Normal (applies to 36.6 [place] [facility] non-numeric System results) Body temperature 98 [degF] 0 - 200 Normal (applies to 98 [degF] [facility] non-numeric System results) Body surface 1.[address] [facility] ealt area Derived System from formula Body mass index 23.5 kg/m2 23.5 kg/m2 [facility] (BMI) [Ratio] System Body weight 70.3 kg 70.3 kg [facility] System Body height 172.72 cm 172.72 cm [facility] Body temperature 37.832252 37.499059 [place] [facility] Respiratory rate 18 /min 18 /min [facility] Oxygen 98 % 98 % [facility] saturation in Medical [facility] ter Arterial blood by Pulse oximetry Heart rate 105 /min 105 /min [facility] Diastolic blood 96 mm[Hg] 96 mm[Hg] [facility] Systolic blood 151 mm[Hg] 151 mm[Hg] [facility] [place] Body temperature 36.220209 36.894999 [place] [facility] Respiratory rate 20 /min 20 /min [facility] Oxygen 97 % 97 % [facility] saturation in Medical [facility] ter Arterial blood by Pulse oximetry Heart rate 98 /min 98 /min [facility] Diastolic blood 87 mm[Hg] 87 mm[Hg] [facility] Systolic blood 144 mm[Hg] 144 mm[Hg] [facility] [place] Body temperature 36.584113 36.417083 [place] [facility] Respiratory rate 18 /min 18 /min [facility] Oxygen 98 % 98 % [facility] saturation in Medical [facility] Arterial blood by Pulse oximetry Heart rate 96 /min 96 /min [facility] Diastolic blood 86 mm[Hg] 86 mm[Hg] [facility] Systolic blood 128 mm[Hg] 128 mm[Hg] [facility] [place] Body weight 58.944766 58.254902 kg [facility] hs Measured kg Medical Center Body temperature 36.241096 36.619791 [facility] Respiratory rate 18 /min 18 /min [facility] Oxygen 97 % 97 % [facility] saturation in Medical [facility] Arterial blood by Pulse oximetry Heart rate 112 /min 112 /min [facility] Diastolic blood 87 mm[Hg] 87 mm[Hg] [facility] Systolic blood 167 mm[Hg] 167 mm[Hg] [facility] [place] Body temperature 36.212025 36.900185 [facility] Respiratory rate 18 /min 18 /min [facility] Heart rate 69 /min 69 /min [facility] Diastolic blood 91 mm[Hg] 91 mm[Hg] [facility] Systolic blood 132 mm[Hg] 132 mm[Hg] [facility] [place] Body temperature 37.458184 37.611209 [facility] Respiratory rate 20 /min 20 /min [facility] Heart rate 74 /min 74 /min [facility] Diastolic blood 90 mm[Hg] 90 mm[Hg] [facility] Systolic blood 148 mm[Hg] 148 mm[Hg] [facility] [place] Body temperature 36.844032 36.138925 [facility] Respiratory rate 18 /min 18 /min [facility] Heart rate 65 /min 65 /min [facility] Diastolic blood 87 mm[Hg] 87 mm[Hg] [facility] Systolic blood 143 mm[Hg] 143 mm[Hg] [facility] [place] Body temperature 36.632157 36.062597 [facility] Respiratory rate 20 /min 20 /min [facility] Heart rate 75 /min 75 /min [facility] Diastolic blood 81 mm[Hg] 81 mm[Hg] [facility] Systolic blood 128 mm[Hg] 128 mm[Hg] [facility] [place] Body temperature 37.107516 37.708979 [facility] Respiratory rate 21 /min 21 /min [facility] Heart rate 91 /min 91 /min [facility] Diastolic blood 82 mm[Hg] 82 mm[Hg] [facility] Medical [place] Systolic blood 140 mm[Hg] 140 mm[Hg] [facility] [place] Body temperature 36.060414 36.715363 [facility] Respiratory rate 20 /min 20 /min [facility] Heart rate 69 /min 69 /min [facility] Diastolic blood 70 mm[Hg] 70 mm[Hg] [facility] Systolic blood 120 mm[Hg] 120 mm[Hg] [facility] [place] Body temperature 37.983597 37.434663 [facility] Respiratory rate 18 /min 18 /min [facility] Heart rate 76 /min 76 /min [facility] Diastolic blood 80 mm[Hg] 80 mm[Hg] [facility] Systolic blood 129 mm[Hg] 129 mm[Hg] [facility] [place] Body weight 60.241613 60.770220 kg [facility] Diony hs Measured kg [facility] Body height 165.196248 165.057986 cm [facility] Body mass index 22.30 22.30 kg/m2 [facility] (BMI) [Ratio] kg/m2 Medical [facility] ter Oxygen 99 % 99 % [facility] saturation in Medical [facility] ter Arterial blood by Pulse oximetry Body temperature 36.821720 36.622644 [facility] Respiratory rate 18 /min 18 /min [facility] Heart rate 94 /min 94 /min [facility] Diastolic blood 84 mm[Hg] 84 mm[Hg] [facility] Systolic blood 142 mm[Hg] 142 mm[Hg] [facility] [place] Body weight 60.288571 60.154538 kg [facility] Measured kg [facility] Center Body height 170.390793 170.269748 cm [facility] Body mass index 20.99 20.99 kg/m2 [facility] (BMI) [Ratio] kg/m2 [facility] Body temperature 37.365875 37.940167 [facility] Respiratory rate 18 /min 18 /min [facility] Heart rate 76 /min 76 /min [facility] Diastolic blood 86 mm[Hg] 86 mm[Hg] [facility] Systolic blood 147 mm[Hg] 147 mm[Hg] [facility] [place] Body temperature 37.735611 37.845683 [place] [facility] Respiratory rate 18 /min 18 /min [facility] Oxygen 100 % 100 % [facility] saturation in Medical [facility] Arterial blood by Pulse oximetry Heart rate 76 /min 76 /min [facility] Diastolic blood 92 mm[Hg] 92 mm[Hg] [facility] Systolic blood 163 mm[Hg] 163 mm[Hg] [facility] [place] Body temperature 36.484205 36.083981 [place] [facility] Respiratory rate 18 /min 18 /min [facility] Oxygen 98 % 98 % [facility] saturation in Medical [facility] Arterial blood by Pulse oximetry Heart rate 90 /min 90 /min [facility] Diastolic blood 84 mm[Hg] 84 mm[Hg] [facility] Systolic blood 132 mm[Hg] 132 mm[Hg] [facility] [place] PhenX - pain, 7 7 [place] ([facility]) Pt is here for lower back pain and abdo men pain. Body surface area Derived from 1.76 m2 1.76 m2 [place] ([facility]) Pt is here for lower back pain and abdo men pain. Body mass index (BMI) 25.3 kg/m2 25.3 kg/m2 [facility] [[facility]) Pt is here for lower back pain and abdo men pain. Body weight 152 [lb_av] 152 [lb_av] [place] ([facility]) Pt is here for lower back pain and abdo men pain. Body height 65 [in_us] 65 [in_us] [place] ([facility]) Pt is here for lower back pain and abdo men pain. Body temperature 98.8 [degF] 98.8 [degF] [facility] ([facility]) Pt is here for lower back pain and abdo men pain. Heart rate 76 /min 76 /min CAR[place] ([facility]) Pt is here for lower back pain and abdo men pain. Diastolic blood pressure 83 mm[Hg] 83 mm[Hg] CARISA ([facility]) Pt is here for lower back pain and abdo men pain. Systolic blood pressure 138 mm[Hg] 138 mm[Hg] Suraj ALY ([facility]) Pt is here for lower back pain and abdo men pain. Patient Treatment Plan of Care Planned Activity Planned Date Details Description Data Source (s) Naproxen 250 MG Oral 06/21/2019 BELÉN Landis ([place] Tablet 12:00:00 AM T [facility]) multivitamin with foLIC Mauri [facility] Acid (Thera) 400 mcg [place] Tablet, Ordered By: SHRAVAN Youngbloodirections: 1 tablet oral daily Thiamine 100 MG Oral [facility]
[2020-08-10] MEDS ORDERED: SODIUM CHLORIDE 1,000 ML IV SCH (23:00)
[2020-08-11] MEDS ORDERED: FOLIC ACID INJECTION - 1 MG, THIAMINE HCL 100 MG, MULTIVIT INJECTION ADULT 10 ML in SOD... IVPB ONE (01:18)
[2020-08-11] MEDS ORDERED: LORazepam 2 MG/ML SDV VIAL ONE ×2 (01:26→03:56)
[2020-08-11] MEDS ORDERED: DEXTROSE 5%-NORMAL SALINE 1,000 ML IV SCH (02:00)
[2020-08-11] MEDS ORDERED: chlordiazePOXIDE HCL 25 MG CAPSULE PO PRN (02:03)
[2020-08-11] MEDS ORDERED: ONDANSETRON 4 MG/2 ML VIAL IVPUSH PRN (02:05)
--- NOTE | 2020-08-11 02:11 | HP ---
CHIEF COMPLAINT: PCP: None HISTORY OF PRESENT ILLNESS: 24yoM with history of EtOH abuse and withdrawals who presents after being found poorly responsive. Per EMS report, patient was minimally responsive to painful stimuli, not speaking or following commands, but protecting his airway. He received Narcan in the field without change. At time of evaluation patient is mildly sedated after having received Ativan but awake and interactive. Patient states he learned yesterday that his best friend had . He had two pints of vodka and at least one 40oz bottle of beer between yesterday and today. He does not recall how he got to the hospital and believes he is at [facility] despite multiple attempts at redirection. Has a history of alcohol withdrawal but denies any seizures. Denies nausea, vomiting, abdominal pain, diarrhea, headache, falls. No hallucinations. Tachycardic on arrival to the ED in low 100s. Initially obtunded and difficult to arouse with labs notable for EtOH level 485, AST 103, ALT 108. Patient became more arousable and agitated over time, received thiamine, folate, and fluids as well as Ativan 2mg IV. CT head showed no acute findings. Recent Travel: Denies PAST MEDICAL HISTORY: EtOH abuse, withdrawal PAST SURGICAL HISTORY: Denies Social History: Smoking: Denies Alcohol: Prior to yesterday had been sober for some time Drugs: Denies Allergies No Known Allergies Allergy (Verified 05/17/20 13:27) HOME MEDICATIONS: REVIEW OF SYSTEMS Negative except as noted in HPI PHYSICAL EXAMINATION Vital Signs - 24 hr 08/10/20 08/10/20 08/10/20 17:30 18:51 22:45 Temperature 97.0 F L Pulse Rate 112 H Pulse Rate [ 113 H Left Radial] Respiratory 18 16 Rate Blood Pressure 134/81 Blood Pressure 129/72 128/83 [Right Arm] O2 Sat by Pulse 100 100 Oximetry (%) EXAM Gen: Mildly sedated but awake and interactive HEENT: NC/AT. MMM CV: RRR, tachycardic. No MRG Resp: CTAB, unlabored Abd: SOft, NT/ND, positive bowel sounds Ext: No edema Derm: No rashes. Skin warm/dry Neuro: No tremor, asterixis, tongue fasciculations Psych: AO to person, year. Laboratory Results - last 24 hr 08/10/20 08/10/2020 17:22 17:22 17:22 WBC 7.4 RBC 4.50 Hgb 15.6 Hct 44.9 MCV 99.8 H MCH 34.6 H MCHC 34.7 RDW 13.2 D Plt Count 306 D MPV 8.9 D Absolute Neuts (auto) 4.3 Neutrophils % 57.9 D Lymphocytes % 35.1 D Monocytes % 6.4 Eosinophils % 0.1 D Basophils % 0.5 Nucleated RBC % 0 PT with INR 12.20 INR 1.03 Sodium Potassium Chloride Carbon Dioxide Anion Gap BUN Creatinine Est GFR (CKD-EPI)AfAm Est GFR (CKD-EPI)NonAf Random Glucose Calcium Total Bilirubin AST ALT Alkaline Phosphatase Total Protein Albumin Salicylates < 1.7 L Acetaminophen < 2.0 Alcohol, Quantitative 08/10/20 17:22 WBC RBC Hgb Hct MCV MCH MCHC RDW Plt Count MPV Absolute Neuts (auto) Neutrophils % Lymphocytes % Monocytes % Eosinophils % Basophils % Nucleated RBC % PT with INR INR Sodium 142 Potassium 4.3 Chloride 109 H Carbon Dioxide 23 Anion Gap 10 BUN 12.8 Creatinine 1.0 Est GFR (CKD-EPI)AfAm 122.41 Est GFR (CKD-EPI)NonAf 105.62 Random Glucose 130 H Calcium 8.5 Total Bilirubin 0.5 AST 103 H ALT 108 H Alkaline Phosphatase 72 Total Protein 8.6 H Albumin 4.0 Salicylates Acetaminophen Alcohol, Quantitative 484.6 H ASSESSMENT/PLAN: 24yoM with history of EtOH abuse and withdrawals who presents after being found poorly responsive, found to be acutely intoxicated and now withdrawing. EtOH withdrawal EtOH level on arrival 485 Denies history of withdrawal seizures CIWA at time of evaluation = 5 after having received Ativan 2mg IV Calm but remains confused - Librium protocol - Continue fluids, MVI, thiamine, folate - CIWA - consult DVT ppx: lovenox subq Code status: Full Family Medical History Family History: Denies Visit type - Emergency Visit Emergency Visit: Yes ED Registration Date: 08/11/20 Care time: The patient presented to the Emergency Department on the above date and was hospitalized for further evaluation of their emergent condition. - New Patient This patient is new to me today: Yes Date on this admission: 08/11/20 - Critical Care Critical Care patient: No
[2020-08-11] MEDS: chlordiazePOXIDE HCL 25 MG CAPSULE PO SCH ×2 (05:25→11:33)
[2020-08-11 06:18] VITALS: TEMP 98
[2020-08-11] MEDS ORDERED: ENOXAPARIN NA (PORCINE) 40 MG/0.4 ML DISP.SYRIN SQ ONE (08:15)
[2020-08-11] MEDS ORDERED: THIAMINE HCL 200 MG/2 ML VIAL ONE (08:15)
[2020-08-11] MEDS ORDERED: MULTIVITAMINS (DAILY MVI) TABLET (FP) ONE (08:15)
[2020-08-11] MEDS ORDERED: FOLIC ACID 1 MG TABLET (FP) ONE (08:15)
--- NOTE | 2020-08-11 09:43 | EKG ---
Test Reason : Blood Pressure : / mmHG Vent. Rate : 118 BPM Atrial Rate : 118 BPM P-R Int : 172 ms QRS Dur : 096 ms QT Int : 312 ms P-R-T Axes : 064 -09 051 degrees QTc Int : 437 ms SINUS TACHYCARDIA BIATRIAL ENLARGEMENT ABNORMAL ECG NO PREVIOUS ECGS AVAILABLE Confirmed by Wilson Rae ([id number]) on 08/11/2020 9:42:48 AM Referred By: Confirmed By:Wilson Rae
[2020-08-11] MEDS ORDERED: FOLIC ACID 1 MG TABLET (FP) PO SCH (10:00)
[2020-08-11] MEDS ORDERED: MULTIVITAMINS THER W-MINERALS COMBO TABLET (FP) PO SCH (10:00)
[2020-08-11] MEDS ORDERED: ENOXAPARIN NA (PORCINE) 40 MG/0.4 ML DISP.SYRIN SQ SCH (10:00)
[2020-08-11] MEDS ORDERED: THIAMINE HCL 200 MG/2 ML VIAL IVPB SCH (10:00)
[2020-08-11] MEDS ORDERED: chlordiazePOXIDE HCL 25 MG CAPSULE ONE (11:32)
[2020-08-11 12:02] VITALS: BP 128/59; PULSE 110
--- NOTE | 2020-08-11 13:02 | DS ---
Physical Exam: SUBJECTIVE: Patient seen and examined OBJECTIVE: Vital Signs Period Temp Pulse Resp BP Sys/Murdock Pulse Ox Last 24 Hr 97.0 F-98.2 F 106-113 15-20 126-143/59-87 97-100 PHYSICAL EXAM GENERAL: The patient is awake, alert, and fully oriented, in no acute distress. HEAD: Normal with no signs of trauma. EYES: PERRL, extraocular movements intact, sclera anicteric, conjunctiva clear. ENT: Ears normal, nares patent, oropharynx clear without exudates, moist mucous membranes. NECK: Trachea midline, full range of motion, supple. LUNGS: Breath sounds equal, clear to auscultation bilaterally, no wheezes, no crackles, no accessory muscle use. HEART: Regular rate and rhythm, S1, S2 without murmur, rub or gallop. ABDOMEN: Soft, nontender, nondistended, normoactive bowel sounds, no guarding, no rebound, no hepatosplenomegaly, no masses. EXTREMITIES: 2+ pulses, warm, well-perfused, no edema. NEUROLOGICAL: Cranial nerves II through XII grossly intact. Normal speech, gait not observed. PSYCH: Normal mood, normal affect. SKIN: Warm, dry, normal turgor, no rashes or lesions noted. LABS Laboratory Results - last 24 hr 08/10/20 08/10/20 08/10/20 17:22 17:22 17:22 WBC 7.4 RBC 4.50 Hgb 15.6 Hct 44.9 MCV 99.8 H MCH 34.6 H MCHC 34.7 RDW 13.2 D Plt Count 306 D MPV 8.9 D Absolute Neuts (auto) 4.3 Neutrophils % 57.9 D Lymphocytes % 35.1 D Monocytes % 6.4 Eosinophils % 0.1 D Basophils % 0.5 Nucleated RBC % 0 PT with INR 12.20 INR 1.03 Sodium Potassium Chloride Carbon Dioxide Anion Gap BUN Creatinine Est GFR (CKD-EPI)AfAm Est GFR (CKD-EPI)NonAf Random Glucose Calcium Total Bilirubin AST ALT Alkaline Phosphatase Total Protein Albumin Salicylates < 1.7 L Acetaminophen < 2.0 Alcohol, Quantitative 08/10/20 17:22 WBC RBC Hgb Hct MCV MCH MCHC RDW Plt Count MPV Absolute Neuts (auto) Neutrophils % Lymphocytes % Monocytes % Eosinophils % Basophils % Nucleated RBC % PT with INR INR Sodium 142 Potassium 4.3 Chloride 109 H Carbon Dioxide 23 Anion Gap 10 BUN 12.8 Creatinine 1.0 Est GFR (CKD-EPI)AfAm 122.41 Est GFR (CKD-EPI)NonAf 105.62 Random Glucose 130 H Calcium 8.5 Total Bilirubin 0.5 AST 103 H ALT 108 H Alkaline Phosphatase 72 Total Protein 8.6 H Albumin 4.0 Salicylates Acetaminophen Alcohol, Quantitative 484.6 H HOSPITAL COURSE: Date of Admission:08/11/20 Pt presented to ED with alcohol intoxication, CIWA 5 on admission. Examined today and was lethargic but not actively withdrawing, CIWA 3. Pt left AMA. Date of Discharge: 08/11/20 Minutes to complete discharge: 36 Discharge Summary Problems reviewed: Yes Reason For Visit: ALCOHOL DEPENDENCE WITH WITHDRAWAL Condition: Unchanged/Unknown - Instructions Referrals: Aman Bazzi [Primary Care Provider] - Disposition: AGAINST MEDICAL ADVICE - Home Medications Comprehensive Discharge Medication List: Ambulatory Orders NK [No Known Home Medication] 08/11/20 ATTENDING PHYSICIAN STATEMENT I saw and evaluated the patient. I reviewed the resident's note and discussed the case with the resident. I agree with the resident's findings and plan as documented. SUBJECTIVE: OBJECTIVE: ASSESSMENT AND PLAN:
[2020-08-12] MEDS ORDERED: chlordiazePOXIDE HCL 25 MG CAPSULE PO SCH (05:00)
[2020-08-13] MEDS ORDERED: chlordiazePOXIDE HCL 10 MG CAPSULE PO PRN
[2020-08-13] MEDS ORDERED: chlordiazePOXIDE HCL 10 MG CAPSULE PO SCH (05:00)
[2020-08-14] MEDS ORDERED: chlordiazePOXIDE HCL 10 MG CAPSULE PO SCH (05:00)
[2020-08-15] MEDS ORDERED: chlordiazePOXIDE HCL 10 MG CAPSULE PO ONE (05:00)
== END 2020-08-11 11:30 | disposition left against medical advice (07) | DRG 770 ==
LOC: JER 17:07 → JERBED 08-11 01:58
PROVIDERS: ADMIT Hospitalist
DX: F10.239 Alcohol dependence with withdrawal, unspecified (principal); F10.229 Alcohol dependence with intoxication, unspecified; R00.0 Tachycardia, unspecified
CPT/HCPCS: 36415; 70450-TC; 80053; 80307; 85025; 85610; 93005; 93010; 99285-25